=== PATIENT | female | born 1940 | race Caucasian/White ===

== ENCOUNTER → 2016-07-10 | Outpatient (REF) | payer MEDICARE, BC ==
[~2016-07-10] MED LIST: /ALEN70TA; /AMLO25TA PO; /ESCI10TA; /PANT40TA; /PANT40TA PO; /WARF2TA; /WARF3TA; /WARF3TA PO; /WARF4TA; ACET; ACET65TA; ALBU INH; ALDA25TA2; AMBI12.52 PO; AMBI5TAB; AMBIEN PO; AMLO10TA; AMLO5TAB; AMLO5TAB2 PO; ASPI1TAB PO; ASPI81TA85 PO; ATEN100T; ATEN25TA; ATEN25TA PO; ATEN50TA2; ATEN50TA2 PO; ATOR1TAB18 PO; BABY81CH; CAPT12.5; CARA1TAB2 PO; CATA0.1T; CEFT500T PO; CLOP75TA2 PO; COUM1TAB14 PO; COUM1TAB19 PO; COUM2TAB10 PO; CRES20TA PO; Capoten; DETR1TAB4 PO; DRIS50002 PO; ENTO3CAP5 PO; ERYT5OPO TOP; FERR325T3 PO; FLAG500T PO; FURO20TA2 PO; FURO40TA2 PO; HYDR25TA6; HYDR25TA8; LASI20TA PO; LASI40TA; LISI10TA4 PO; LISI5TAB; LISI5TAB PO; MACR100C3 PO; MELA1CAP2 PO; MILKSUS; MIRA0.254 PO; NASA0.057; NEUR300C PO; NICO21DI26 TOP; NICO7PA TD; NIFE15CA PO; NIFE20CA PO; NITR0.4S; NITR4TASL SL; NYST100024 TOP; NYST10CR TOP; OMEPRAZOLE PO; PANT40TA2 PO; PEPC20TA2; PLAV75TA2; POLY150C4 PO; POLY150C5 PO; PRIL40CA PO; PROA1AER INH; PROC30TA PO; PROT1TAB2 PO; PROV90AE; QUININE SULFATE; ROCA0.25 PO; ROCA0.5C PO; SUCR1TA PO; TENO25TA PO; TIOT18INH INH; TOLT1CAP4 PO; TRAM50TA2 PO; TRAZ50TA4 PO; TYLE325T5 PO; VARE05TA; VICT18IN SC; VITA100037 PO; VITA100066 PO; WARF-58 PO; WARF1TAB35 PO; WARF4TAB51 PO; XANA0.25; ZOCO20TA; ZOCO40TA PO; ZOLP-187 PO; ZYLO100T PO; ZYRT10CA PO; captopril
== END ==
LOC: M SFHCPLAZ 16:51
PROVIDERS: ATTEND Nurse Practitioner Family
DX: L03.90 Cellulitis, unspecified (principal)

== ENCOUNTER → 2016-07-10 | Outpatient (CLI) | payer MEDICARE, BC ==
[2016-07-10 19:00] LABS: BASO % 0.7 % (0.0-1.0); EOS # 0.2 K/mm3 (0.0-0.50); EOS % 3.2 % (0.0-3.0); LARGE UNSTAINED CELL # 0.2 K/mm3 (0.0-0.4); LARGE UNSTAINED CELL % 2.1 % (0.0-4.0); LYMPH % 13.5 % (24.0-44.0); MEAN CORPUSCULAR HEMOGLOBIN 29.3 pg (27.0-33.0); MEAN CORPUSCULAR HGB CONC 31.2 g/dl (32.0-36.5); MEAN CORPUSCULAR VOLUME 93.8 fl (80.0-96.0); MONO # 0.3 K/mm3 (0.0-0.8); MONO % 4.2 % (0.0-5.0); NEUTROPHILS # 5.6 K/mm3 (1.8-7.7); NEUTROPHILS % 76.3 % (36.0-66.0); PLATELET COUNT, AUTOMATED 456 k/mm3 (150-450); RED CELL DISTRIBUTION WIDTH 15.4 % (11.5-14.5); WHITE BLOOD COUNT 7.4 K/mm3 (4.0-10.0)
== END ==
LOC: M LAB 18:33
PROVIDERS: ATTEND Nurse Practitioner Family
DX: L03.90 Cellulitis, unspecified (principal); Z79.01 Long term (current) use of anticoagulants
CPT/HCPCS: 36415; 85025; 85610; 87070; 87077; 87186; G0463

== ENCOUNTER → 2016-08-06 | Outpatient (CLI) | payer MEDICARE, BC ==
--- NOTE | 2016-08-06 12:31 | REP ---
Clinical: Pain. Technique: AP, lateral, bilateral oblique views of the left ankle. Findings: Soft tissue swelling is appreciated. Age-related degenerative changes noted. No acute fracture or dislocation. Ankle mortise intact. Impression: Soft tissue swelling and age-related degenerative changes. Signed by Pratik Rowland MD 08/06/2016 12:23 P
== END ==
LOC: M RAD 11:51
PROVIDERS: ATTEND Nurse Practitioner Family
DX: M19.072 Primary osteoarthritis, left ankle and foot (principal); Z79.01 Long term (current) use of anticoagulants
CPT/HCPCS: 73610; 85610; G0463

== ENCOUNTER → 2016-08-27 | Outpatient (REF) | payer MEDICARE, BC | LOC: M SFHCPLAZ 16:09 | PROVIDERS: ATTEND Nurse Practitioner Family | DX: D64.9 Anemia, unspecified (principal); Z53.8 Procedure and treatment not carried out for other reasons ==

== ENCOUNTER → 2016-08-27 | Outpatient (CLI) | payer MEDICARE, BC ==
[2016-08-27 20:34] LABS: BASO # 0.1 K/mm3 (0.0-0.2); BASO % 1.1 % (0.0-1.0); EOS # 0.2 K/mm3 (0.0-0.50); EOS % 2.6 % (0.0-3.0); LARGE UNSTAINED CELL # 0.2 K/mm3 (0.0-0.4); LARGE UNSTAINED CELL % 2.6 % (0.0-4.0); LYMPH # 1.2 K/mm3 (1.5-4.5); LYMPH % 15.6 % (24.0-44.0); MEAN CORPUSCULAR HEMOGLOBIN 28.8 pg (27.0-33.0); MEAN CORPUSCULAR HGB CONC 29.8 g/dl (32.0-36.5); MEAN CORPUSCULAR VOLUME 96.7 fl (80.0-96.0); MONO # 0.6 K/mm3 (0.0-0.8); MONO % 7.9 % (0.0-5.0); NEUTROPHILS # 5.2 K/mm3 (1.8-7.7); NEUTROPHILS % 70.2 % (36.0-66.0); PLATELET COUNT, AUTOMATED 354 k/mm3 (150-450); WHITE BLOOD COUNT 7.4 K/mm3 (4.0-10.0)
== END ==
LOC: M WUC 16:44
PROVIDERS: ATTEND Nurse Practitioner Family
DX: D64.9 Anemia, unspecified (principal); Z51.81 Encounter for therapeutic drug level monitoring; Z79.01 Long term (current) use of anticoagulants

== ENCOUNTER → 2016-10-30 | Outpatient (CLI) | payer MEDICARE, BC ==
--- NOTE | 2016-10-30 15:13 | REP ---
REASON: Tobacco abuse. Only lung window images were sent to the PACS system for review. The interstitial markings are generally increased. There is no evidence of a significant nodule, mass, or opacity. IMPRESSION: Interstitial fibrotic changes are suspected. Pulmonary consultation is recommended. There is no evidence of a significant nodule. Signed by Jewel Fernández DO 10/30/2016 03:37 P
== END ==
LOC: M RAD 10:52
PROVIDERS: ATTEND Family Medicine
DX: Z12.2 Encounter for screening for malignant neoplasm of respiratory organs (principal); R91.8 Other nonspecific abnormal finding of lung field; Z87.891 Personal history of nicotine dependence

== ENCOUNTER → 2016-11-03 | Outpatient (REF) | payer MEDICARE, BC ==
[2016-11-03 11:32] LABS: MEAN CORPUSCULAR HEMOGLOBIN 28.2 pg (27.0-33.0); MEAN CORPUSCULAR HGB CONC 29.7 g/dl (32.0-36.5); WHITE BLOOD COUNT 6.3 K/mm3 (4.0-10.0)
[2016-11-03 11:37] LABS: INR 3.99
== END ==
LOC: M SFHCPLAZ 10:15
PROVIDERS: ATTEND Family Medicine
DX: D50.9 Iron deficiency anemia, unspecified (principal); Z51.81 Encounter for therapeutic drug level monitoring; Z79.01 Long term (current) use of anticoagulants; Z87.19 Personal history of other diseases of the digestive system
CPT/HCPCS: 85027; 85610; G0463

== ENCOUNTER → 2016-11-05 | Outpatient (CLI) | payer MEDICARE, BC ==
--- NOTE | 2016-11-05 15:57 | REP ---
Digital screening mammography with CAD: No comparison mammography available. The patient relates a history of a previous lumpectomy on the left. No current breast symptoms. Findings: There is mild vascular calcification. Breast parenchyma shows scattered fibrous glandular elements and scattered non-grouped calcifications bilaterally. There is an asymmetric density at approximate 12 o'clock in the right breast which is partly fat density. This may be benign fat necrosis. It is asymmetric. Further evaluation is recommended. No other suspicious mammographic finding. Impression: BIRADS category 0 incomplete breast imaging. Asymmetric density at 12 o'clock in the anterior third of the left breast may be postoperative change. Diagnostic left breast mammography and focused left breast sonography recommended. This mammogram was interpreted with the aid of an FDA-approved computer-aided detection system. The patient states she/he had a clinical breast exam in October 2016. The patient letter being requested is M0.
--- NOTE | 2016-11-07 09:08 | DEXA ---
AP SPINE L1 - L4 1.092 -0.8 0.2 LT FEMUR TOTAL 0.834 -1.4 -0.1 RT FEMUR TOTAL 0.769 -1.9 -0.6 TOTAL BODY TOTAL OTHER DUAL FEMUR FRAX* ASSESSMENT Risk factors: None. 10 year probability of fracture Major osteoporotic fracture 15.8 % Hip fracture 4.8 % COMMENTS: Normal bone densitometry of the spine. There is low bone density of the hips. The density of the spine has increased 12.0% since the initial exam on 2001. The spine density has increased 5.6% since the most recent exam on 06/03/2007. The density of the left hip has decreased 3.0% since the initial exam on 2001. The density of the left hip has decreased 6.0% since the the most recent exam on 06/03/2007. The density of the right hip has decreased 7.0% since the initial exam on 2001. The density of the right hip has decreased 11.5% since the most recent exam on 06/03/2007. FOLLOW-UP: Recommendation for the next bone density exam: 2 years. GARCIA
== END ==
LOC: M WHC 12:49
PROVIDERS: ATTEND Family Medicine
DX: Z12.31 Encounter for screening mammogram for malignant neoplasm of breast (principal); R92.8 Other abnormal and inconclusive findings on diagnostic imaging of breast; M85.9 Disorder of bone density and structure, unspecified; Z13.820 Encounter for screening for osteoporosis
CPT/HCPCS: 77080; G0202

== ENCOUNTER → 2016-12-05 | Outpatient (CLI) | payer MEDICARE, BC ==
--- NOTE | 2016-12-05 15:05 | REP ---
BILATERAL DIAGNOSTIC MAMMOGRAM AND BILATERAL BREAST ULTRASOUND: Bilateral diagnostic mammography is performed with multiple bilateral spot compression views obtained. No nodules are seen in the left breast. However, in the right breast at 12-o'clock position, there does appear to be a persistent somewhat irregular nodule approximately 1 cm in diameter. There appears to be central fat density within the nodule. Margins are again somewhat ill defined. Real-time sonographic evaluation of the 12-o'clock region of the right breast demonstrates a shadowing hypoechoic nodule measuring 1.0 x 0.9 x 1.1 cm. Biopsy is recommended. Real-time sonographic evaluation of left breast performed in the retroareolar region demonstrates some dilated ducts with no discrete nodule. IMPRESSION: ACR 4 suspicious mammogram right breast. There does appear to be a somewhat irregular 1 cm nodule at 12-o'clock position of the right breast, and this does appear to contain central fat density. By ultrasound, it is shadowing and demonstrates internal blood flow with Doppler evaluation. Recommend ultrasound-guided biopsy with postprocedure mammogram. ACR 4 suspicious. B-RADS/ACR category 4 mammogram. Suspicious abnormality - biopsy should be considered. Usually requires biopsy. The patient letter being requested is M4. Signed by Jhonny Dorman MD 12/05/2016 05:24 P
== END ==
LOC: M RAD 11:27
PROVIDERS: ATTEND Family Medicine
DX: R92.8 Other abnormal and inconclusive findings on diagnostic imaging of breast (principal)
CPT/HCPCS: 76642; G0206

== ENCOUNTER → 2016-12-08 | Outpatient (REF) | payer MEDICARE, BC | LOC: M SFHCPLAZ 14:55 | PROVIDERS: ATTEND Nurse Practitioner Family | DX: R06.02 Shortness of breath (principal); I50.40 Unspecified combined systolic (congestive) and diastolic (congestive) heart failure; Z53.8 Procedure and treatment not carried out for other reasons ==

== ENCOUNTER → 2016-12-10 | Outpatient (CLI) | payer MEDICARE, BC | LOC: M RAD 14:31 → M LAB 14:31 | PROVIDERS: ATTEND Nurse Practitioner Family | DX: R06.02 Shortness of breath (principal); D50.0 Iron deficiency anemia secondary to blood loss (chronic) ==

== ENCOUNTER → 2016-12-10 | Outpatient (REF) | payer MEDICARE, BC ==
[2016-12-10 17:03] LABS: MEAN CORPUSCULAR HEMOGLOBIN 27.5 pg (27.0-33.0); MEAN CORPUSCULAR HGB CONC 29.6 g/dl (32.0-36.5); MEAN CORPUSCULAR VOLUME 92.7 fl (80.0-96.0); RED CELL DISTRIBUTION WIDTH 16.7 % (11.5-14.5); WHITE BLOOD COUNT 6.1 K/mm3 (4.0-10.0)
== END ==
LOC: M SFHCPLAZ 13:44
PROVIDERS: ATTEND Family Medicine
DX: D50.0 Iron deficiency anemia secondary to blood loss (chronic) (principal)

== ENCOUNTER → 2016-12-15 | Outpatient (REF) | payer MEDICARE, BC ==
[~2016-12-15] MED LIST changes: +AFRI0.052; +ALDA25TA2 PO; -ATOR1TAB18 PO; +ATOR80TA59 PO; +CARA1TAB6 PO; +CINA30TA PO; +CITA20TA4 PO; -COUM2TAB10 PO; +COUM2TAB22 PO; +DEMA20TA6 PO; +FERR32TA PO; +FURO80TA2 PO; +GABA-282 PO; +MYCO15CR TOP; -NYST100024 TOP; +NYST1POW9 TOP; -PROA1AER INH; +PROAAER10 INH; +TRAZ50TA11 PO; -TRAZ50TA4 PO; -VITA100037 PO; +VITA100067 PO; +ZOLP5TAB PO; +oxygen
== END ==
LOC: M SFHCPLAZ 17:10
PROVIDERS: ATTEND Nurse Practitioner Family
DX: N30.00 Acute cystitis without hematuria (principal)
CPT/HCPCS: 81002; 87088; 87186; G0463

== ENCOUNTER → 2017-01-13 | Outpatient (CLI) | payer MEDICARE, BC ==
[~2017-01-13] MED LIST changes: +LIDOCAINE 1% MDV 20ML VIAL As Ordered ONE
--- NOTE | 2017-01-13 13:00 | REP ---
POST BIOPSY MAMMOGRAM RIGHT BREAST: Post biopsy mammogram right breast performed. Patient had ultrasound guided biopsy of a suspicious nodule at 12 o'clock in the right breast. There is a metallic clip now seen on today's mammogram at the site of the nodule comparing to the prior mammogram of 12/05/2016. Signed by Jhonny Dorman MD 01/13/2017 03:30 P
--- NOTE | 2017-01-13 17:31 | REP ---
ULTRASOUND GUIDED RIGHT BREAST BIOPSY: The procedure was performed under the direct supervision of Dr. Dorman. The patient has a history of an irregular 1 cm nodule at the 12 o'clock position of the right breast seen on a previous ultrasound dated 12/05/2016. The risks and benefits of the procedure were explained to the patient and informed consent was obtained. The right breast nodule was localized using ultrasound guidance. The skin was prepped and draped in a sterile fashion 1% Xylocaine was used as a local anesthetic. Using ultrasound guidance a 13-gauge suction assisted mammotome needle was inserted and 5 core biopsy samples were obtained. A marker clip was placed at the biopsy site. Post-biopsy ultrasound demonstrates a small hematoma. Manual pressure was placed over the site for approximately 5-10 minutes. Ultrasound images obtained approximately half an hour later show enlargement of the hematoma. Again manual pressure was held at the site. Images obtained approximately 1 hour later show the hematoma to have gotten slightly smaller. After the appropriate amount of monitored convalescence the patient was discharged from the department. The patient tolerated the procedure well and there were no immediate complications. Reviewed by FLEX Lauren 01/14/2017 01:35 PEdited and Signed by Jhonny Dorman MD 01/15/2017 05:38 P
== END | disposition home or self-care (01) ==
LOC: M RADPRO 10:52
PROVIDERS: ATTEND Surgery
DX: N63 Unspecified lump in breast (principal); L76.32 Postprocedural hematoma of skin and subcutaneous tissue following other procedure; I12.9 Hypertensive chronic kidney disease with stage 1 through stage 4 chronic kidney disease, or unspecified chronic kidney disease; N18.3 Chronic kidney disease, stage 3 (moderate); E78.00 Pure hypercholesterolemia, unspecified; J98.4 Other disorders of lung; K21.9 Gastro-esophageal reflux disease without esophagitis; Z95.5 Presence of coronary angioplasty implant and graft; M10.9 Gout, unspecified; Z79.899 Other long term (current) drug therapy; Z87.891 Personal history of nicotine dependence
CPT/HCPCS: 19083; 88305; G0206

== ENCOUNTER → 2017-01-19 | Outpatient (CLI) | payer MEDICARE, BC ==
[~2017-01-19] MED LIST changes: -LIDOCAINE 1% MDV 20ML VIAL As Ordered ONE
[2017-01-19 10:56] LABS: MEAN CORPUSCULAR HEMOGLOBIN 27.7 pg (27.0-33.0); MEAN CORPUSCULAR HGB CONC 30.4 g/dl (32.0-36.5); MEAN CORPUSCULAR VOLUME 91.2 fl (80.0-96.0); WHITE BLOOD COUNT 7.9 K/mm3 (4.0-10.0)
== END ==
LOC: M LAB 10:16
PROVIDERS: ATTEND Family Medicine
DX: D50.0 Iron deficiency anemia secondary to blood loss (chronic) (principal)

== ENCOUNTER → 2017-01-19 | Outpatient (CLI) | payer MEDICARE, BC ==
--- NOTE | 2017-01-19 19:25 | ECGEPIP ---
Stationary ECG Study [facility] Test Date: 2017-01-19 Pat Name: LAURA CASSIDY Department: Room: - Gender: F Junior Estimator: : 1940 Requested By: QUIN Rios Order Number: [id number] Reading MD: Sebastien Morel Measurements Intervals [place] Rate: 65 P: 77 CO: 261 QRS: 99 QRSD: 130 T: 270 QT: 474 QTc: 493 Interpretive Statements Incorrect limb lead placement. Underlying sinus rhythm? Marked first-degree AV block. Prominent precordial voltage with incomplete LBBB and strain in keeping with LVH. Other than incorrect lead placement, no apparent change from 12/26/15. Electronically Signed On 01-19-2017 19:24:58 EDT by Sebastien Morel
== END ==
LOC: M LAB 10:12
PROVIDERS: ATTEND Ophthalmology
DX: I10 Essential (primary) hypertension (principal); D50.0 Iron deficiency anemia secondary to blood loss (chronic)

== ENCOUNTER 2017-02-02 11:40 | Emergency (ER) | payer MEDICARE, BC ==
[~2017-02-02] VITALS: Ht 165.1 cm; Wt 87.3 kg
[~2017-02-02 11:40] MED LIST changes: -AFRI0.052; -ALDA25TA2 PO; -CINA30TA PO; -CITA20TA4 PO; -DEMA20TA6 PO; -FERR32TA PO; -GABA-282 PO; -MYCO15CR TOP; -oxygen
[2017-02-02] MEDS ORDERED: AFRI0.052 (12:06)
[2017-02-02] MEDS ORDERED: MYCO15CR TOP (12:06)
[2017-02-02] MEDS ORDERED: CINA30TA PO (12:06)
[2017-02-02] MEDS ORDERED: CITA20TA4 PO (12:06)
[2017-02-02 12:14] LABS: BASO % 0.6 % (0.0-1.0); EOS # 0.2 K/mm3 (0.0-0.50); EOS % 1.7 % (0.0-3.0); LARGE UNSTAINED CELL # 0.1 K/mm3 (0.0-0.4); LARGE UNSTAINED CELL % 1.5 % (0.0-4.0); LYMPH # 1.4 K/mm3 (1.5-4.5); LYMPH % 13.9 % (24.0-44.0); MEAN CORPUSCULAR HEMOGLOBIN 28.2 pg (27.0-33.0); MEAN CORPUSCULAR HGB CONC 30.5 g/dl (32.0-36.5); MEAN CORPUSCULAR VOLUME 92.2 fl (80.0-96.0); MONO # 0.5 K/mm3 (0.0-0.8); MONO % 5.2 % (0.0-5.0); NEUTROPHILS % 77.1 % (36.0-66.0); PLATELET COUNT, AUTOMATED 306 k/mm3 (150-450); RED CELL DISTRIBUTION WIDTH 18.5 % (11.5-14.5); WHITE BLOOD COUNT 9.1 K/mm3 (4.0-10.0)
[2017-02-02 12:22] LABS: INR 3.12
[2017-02-02 13:32] VITALS: BP 145/63
[2017-04-20] MEDS ORDERED: FURO40TA2 PO (15:11)
[2017-04-20] MEDS ORDERED: CINA30TA PO (15:19)
[2017-04-20] MEDS ORDERED: oxygen (15:20)
[2017-04-20] MEDS ORDERED: NYST1POW9 TOP (18:14)
[2017-04-28] MEDS ORDERED: DEMA20TA6 PO (11:21)
[2017-04-28] MEDS ORDERED: FERR32TA PO (11:21)
[2017-04-28] MEDS ORDERED: GABA-282 PO (11:21)
[2017-04-28] MEDS ORDERED: ALDA25TA2 PO (11:21)
== END 2017-02-02 13:34 | disposition home or self-care (01) ==
LOC: EDBD 11:40 → M ED 11:40
DX: R04.0 Epistaxis (principal); I10 Essential (primary) hypertension; Z87.891 Personal history of nicotine dependence; Z88.1 Allergy status to other antibiotic agents; Z88.2 Allergy status to sulfonamides; Z88.5 Allergy status to narcotic agent; Z79.01 Long term (current) use of anticoagulants; Z79.899 Other long term (current) drug therapy

== ENCOUNTER 2017-02-05 08:18 | Day surgery (SDC) | payer MEDICARE, BC ==
[~2017-02-05] VITALS: Ht 165.1 cm; Wt 86.2 kg
[~2017-02-05 08:18] MED LIST changes: +ACETYLCHOLINE OPHTH SOLN 1% 2ML (MIOCHOL-E) As Ordered ONE; +AFRI0.052; +BALANCED SALT IRRIGATION SOLUTION 500ML BAG (FOR OR EYE MACHINE) As Ordered ONE; +CEFUROXIME 1MG/0.1ML INTRACAMERAL INJ As Ordered ONE; +CINA30TA PO; +CITA20TA4 PO; +DUOVISC (0.50ML VISCOAT/0.55ML PROVISC) OPHTH KIT As Ordered ONE; +LIDOCAINE 0.75%/EPINEPHRINE 0.025% IN BSS 1ML SYR INTRACAMERAL (OR ONLY) As Ordered ONE; +MYCO15CR TOP; +OFLOXACIN 0.3 % (OCUFLOX) OPTH SOL 5ML XX ONE; +PHENYLEPHRINE 2.5% OPHTH SOL 2ML XX ONE; +POVIDONE-IODINE 5% OPHTH PREP SOL 30ML As Ordered ONE; +PROPARACAINE 0.5% OPHTH SOL 15ML XX ONE; +TROPICAMIDE 1% OPHTH SOLN 2ML XX ONE
[2017-02-05] MEDS ORDERED: fentaNYL 100 MCG/2 ML INJECTION (J3010) As Ordered ONE (08:26)
[2017-02-05] MEDS ORDERED: MIDAZOLAM INJ 2 MG/2 ML VIAL (J2250) As Ordered ONE (08:26)
[2017-02-05] MEDS ORDERED: LR 1,000 ML IV ONE (08:30)
[2017-02-05] MEDS ORDERED: WARF-58 PO (09:23)
[2017-02-05] MEDS ORDERED: WARF4TAB51 PO (09:23)
[2017-02-05 09:26] LABS: INR 2.8
[2017-02-05 12:55] VITALS: BP 137/63
[2017-04-20] MEDS ORDERED: FURO40TA2 PO (15:11)
[2017-04-20] MEDS ORDERED: CINA30TA PO (15:19)
[2017-04-20] MEDS ORDERED: oxygen (15:20)
[2017-04-20] MEDS ORDERED: NYST1POW9 TOP (18:14)
[2017-04-28] MEDS ORDERED: FERR32TA PO (11:21)
[2017-04-28] MEDS ORDERED: DEMA20TA6 PO (11:21)
[2017-04-28] MEDS ORDERED: GABA-282 PO (11:21)
[2017-04-28] MEDS ORDERED: ALDA25TA2 PO (11:21)
== END 2017-02-05 12:59 | disposition home or self-care (01) ==
LOC: M SDC 08:18
PROVIDERS: ATTEND Ophthalmology
DX: H25.12 Age-related nuclear cataract, left eye (principal); I10 Essential (primary) hypertension; I25.10 Atherosclerotic heart disease of native coronary artery without angina pectoris; I34.8 Other nonrheumatic mitral valve disorders; I50.9 Heart failure, unspecified; Z88.2 Allergy status to sulfonamides; E78.5 Hyperlipidemia, unspecified; D64.9 Anemia, unspecified; I73.9 Peripheral vascular disease, unspecified; Z86.73 Personal history of transient ischemic attack (TIA), and cerebral infarction without residual deficits; Z79.899 Other long term (current) drug therapy; N18.4 Chronic kidney disease, stage 4 (severe); Z95.1 Presence of aortocoronary bypass graft; Z88.5 Allergy status to narcotic agent
CPT/HCPCS: 36415; 66984; 85610; J2250; J3010; V2632

== ENCOUNTER → 2017-02-16 | Outpatient (CLI) | payer MEDICARE, BC ==
[~2017-02-16] MED LIST changes: -ACETYLCHOLINE OPHTH SOLN 1% 2ML (MIOCHOL-E) As Ordered ONE; +ALDA25TA2 PO; -BALANCED SALT IRRIGATION SOLUTION 500ML BAG (FOR OR EYE MACHINE) As Ordered ONE; -CEFUROXIME 1MG/0.1ML INTRACAMERAL INJ As Ordered ONE; +DEMA20TA6 PO; -DUOVISC (0.50ML VISCOAT/0.55ML PROVISC) OPHTH KIT As Ordered ONE; +FERR32TA PO; +GABA-282 PO; -LIDOCAINE 0.75%/EPINEPHRINE 0.025% IN BSS 1ML SYR INTRACAMERAL (OR ONLY) As Ordered ONE; -OFLOXACIN 0.3 % (OCUFLOX) OPTH SOL 5ML XX ONE; -PHENYLEPHRINE 2.5% OPHTH SOL 2ML XX ONE; -POVIDONE-IODINE 5% OPHTH PREP SOL 30ML As Ordered ONE; -PROPARACAINE 0.5% OPHTH SOL 15ML XX ONE; -TROPICAMIDE 1% OPHTH SOLN 2ML XX ONE; +oxygen
[2017-02-16 15:49] LABS: BASO # 0.1 K/mm3 (0.0-0.2); EOS # 0.2 K/mm3 (0.0-0.50); EOS % 2.3 % (0.0-3.0); LARGE UNSTAINED CELL # 0.2 K/mm3 (0.0-0.4); LARGE UNSTAINED CELL % 2.3 % (0.0-4.0); LYMPH % 14.7 % (24.0-44.0); MEAN CORPUSCULAR HEMOGLOBIN 27.3 pg (27.0-33.0); MEAN CORPUSCULAR HGB CONC 29.9 g/dl (32.0-36.5); MEAN CORPUSCULAR VOLUME 91.1 fl (80.0-96.0); MONO # 0.4 K/mm3 (0.0-0.8); MONO % 6.2 % (0.0-5.0); NEUTROPHILS # 5.2 K/mm3 (1.8-7.7); NEUTROPHILS % 73.5 % (36.0-66.0); PLATELET COUNT, AUTOMATED 332 k/mm3 (150-450); RED CELL DISTRIBUTION WIDTH 17.3 % (11.5-14.5)
[2017-02-16 16:01] LABS: ADD MORPHOLOGY? YES
[2017-02-16 16:14] LABS: PERCENT SATURATION 13.2 % (13.2-45.0)
[2017-02-16 16:18] LABS: ANISOCYTOSIS 1+; HYPOCHROMASIA 2+; POLYCHROMASIA 1+
[2017-02-16 16:19] LABS: OVALOCYTES 1+
== END ==
LOC: M LAB 15:17
PROVIDERS: ATTEND Family Medicine
DX: D50.0 Iron deficiency anemia secondary to blood loss (chronic) (principal)

== ENCOUNTER 2017-02-18 10:42 | Outpatient (CLI) | payer MEDICARE, BC ==
[~2017-02-18 10:42] MED LIST changes: -ALDA25TA2 PO; -DEMA20TA6 PO; -FERR32TA PO; -GABA-282 PO; -oxygen
[2017-02-18] MEDS ORDERED: diphenhydrAMINE 25 MG CAP PO ONE (12:30)
[2017-02-18] MEDS ORDERED: ACETAMINOPHEN TAB 650MG DOSE (2X325MG) PO ONE (12:30)
[2017-04-20] MEDS ORDERED: FURO40TA2 PO (15:11)
[2017-04-20] MEDS ORDERED: CINA30TA PO (15:19)
[2017-04-20] MEDS ORDERED: oxygen (15:20)
[2017-04-20] MEDS ORDERED: NYST1POW9 TOP (18:14)
[2017-04-28] MEDS ORDERED: FERR32TA PO (11:21)
[2017-04-28] MEDS ORDERED: DEMA20TA6 PO (11:21)
[2017-04-28] MEDS ORDERED: GABA-282 PO (11:21)
[2017-04-28] MEDS ORDERED: ALDA25TA2 PO (11:21)
== END 2017-02-18 22:23 | disposition home or self-care (01) ==
LOC: M OPCLI4PV 10:42 → M MSPAV 10:45 → M OPCLI4PV 22:23
PROVIDERS: ATTEND Nurse Practitioner Family
DX: D50.0 Iron deficiency anemia secondary to blood loss (chronic) (principal); Z88.8 Allergy status to other drugs, medicaments and biological substances; Z88.2 Allergy status to sulfonamides; Z88.5 Allergy status to narcotic agent
CPT/HCPCS: 36415; 36430; 86850; 86900; 86901; 86920; P9016

== ENCOUNTER 2017-02-19 11:54 | Day surgery (SDC) | payer MEDICARE, BC ==
--- NOTE | 2017-02-08 08:35 | RO ---
DATE OF PROCEDURE: 02/05/2017 PREOPERATIVE DIAGNOSIS: Visually significant nuclear sclerotic cataract left eye. POSTOPERATIVE DIAGNOSIS: Visually significant nuclear sclerotic cataract left eye. PROCEDURE: Cataract extraction with use of phacoemulsification, and placement of intraocular lens, AU00T0 20.5D , left eye. SURGEON: Froilan Silvestre DO MILL ROLL REWINDER: ANESTHESIA: Local with monitored anesthesia care (MAC). COMPLICATIONS: None. POSTOPERATIVE CONDITION: Stable. INDICATION FOR SURGERY: Blurred vision left eye affecting patient's activities of daily living. DESCRIPTION OF PROCEDURE: The patient was seen in the preoperative area and properly identified. The correct operative eye was identified and marked. Attention was turned to that eye. The patient received topical antibiotics in the preoperative area. The patient then received topical dilating drops consisting of Tropicamide and Phenylephrine. The patient was then transferred to the operating room. The correct side was re-identified. The patient received topical anesthetics and antibiotics on the surface of the eye. The eye was prepped and draped in a sterile fashion. The upper and lower eyelids were isolated with Tegaderm tape, and the lids were held open with an adjustable speculum. Using a sideport blade, a paracentesis incision was made. Intraocular preservative-free lidocaine was then injected into the anterior chamber. Viscoelastic was then injected into the anterior chamber through the paracentesis. Using a 2.6 mm sharp-tipped keratome, the anterior chamber was entered via a temporal clear corneal incision. A continuous curvilinear capsulorrhexis was created with the aid of a 26g cystotome and utrata forceps. Hydrodissection was performed with balanced salt solution (BSS) on a blunt cannula until the nucleus was freely mobile. The crystalline lens was phacoemulsified and aspirated. Additional cohesive viscoelastic was placed into the capsular bag to deepen it. A 20.5 lens D was placed into the capsular bag and confirmed by visualizing the continuous curvilinear capsulorrhexis. Additional irrigation and aspiration was used to remove cortical material and remaining viscoelastic. The clear corneal incision was hydrated with BSS on a blunt cannula. The lens was well positioned. The incisions were then tested for leaks and found to be negative. The eye was then palpated for appropriate pressure and adjusted accordingly with BSS. The eyelid speculum was carefully removed. A shield was placed over the eye. The patient tolerated the procedure well and was discharged to the recovery unit in a stable condition. edited: 02/09/2017 1437 tkf [email or web address]
[~2017-02-19] VITALS: Ht 165.1 cm; Wt 86.2 kg
[~2017-02-19 11:54] MED LIST changes: +ACETYLCHOLINE OPHTH SOLN 1% 2ML (MIOCHOL-E) As Ordered ONE; +CEFUROXIME 1MG/0.1ML INTRACAMERAL INJ As Ordered ONE; +DUOVISC (0.50ML VISCOAT/0.55ML PROVISC) OPHTH KIT As Ordered ONE; +LIDOCAINE 0.75%/EPINEPHRINE 0.025% IN BSS 1ML SYR INTRACAMERAL (OR ONLY) As Ordered ONE; +OFLOXACIN 0.3 % (OCUFLOX) OPTH SOL 5ML OD ONE; +PHENYLEPHRINE 2.5% OPHTH SOL 2ML OD ONE; +POVIDONE-IODINE 5% OPHTH PREP SOL 30ML As Ordered ONE; +PROPARACAINE 0.5% OPHTH SOL 15ML OD ONE; +TROPICAMIDE 1% OPHTH SOLN 2ML OD ONE
[2017-02-19] MEDS ORDERED: LR 1,000 ML IV SCH (12:00)
[2017-02-19] MEDS ORDERED: NS 1,000 ML IV SCH (12:15)
[2017-02-19] MEDS ORDERED: LR 500 ML ONE (12:56)
[2017-02-19] MEDS ORDERED: MIDAZOLAM INJ 2 MG/2 ML VIAL (J2250) As Ordered ONE (13:14)
[2017-02-19] MEDS ORDERED: fentaNYL 100 MCG/2 ML INJECTION (J3010) As Ordered ONE (13:15)
[2017-02-19] MEDS ORDERED: BALANCED SALT IRRIGATION SOLUTION 500ML BAG (FOR OR EYE MACHINE) IR ONE (13:46)
[2017-02-19 14:50] VITALS: BP 133/65
--- NOTE | 2017-02-20 15:33 | RO ---
DATE OF PROCEDURE: 02/19/2017 PREOPERATIVE DIAGNOSIS: Visually significant nuclear sclerotic cataract right eye. POSTOPERATIVE DIAGNOSIS: Visually significant nuclear sclerotic cataract right eye. PROCEDURE: Cataract extraction with use of phacoemulsification, and placement of intraocular lens, AU00T0, 23.5 D, right eye. SURGEON: Froilan Silvestre DO ACCOUNT RESOLUTION EXPERT: ANESTHESIA: Local with monitored anesthesia care (MAC). COMPLICATIONS: None. POSTOPERATIVE CONDITION: Stable. INDICATION FOR SURGERY: Blurred vision right eye affecting patient's activities of daily living. DESCRIPTION OF PROCEDURE: The patient was seen in the preoperative area and properly identified. The correct operative eye was identified and marked. Attention was turned to that eye. The patient received topical antibiotics in the preoperative area. The patient then received topical dilating drops consisting of Tropicamide and Phenylephrine. The patient was then transferred to the operating room. The correct side was re-identified. The patient received topical anesthetics and antibiotics on the surface of the eye. The eye was prepped and draped in a sterile fashion. The upper and lower eyelids were isolated with Tegaderm tape, and the lids were held open with an adjustable speculum. Using a sideport blade, a paracentesis incision was made. Intraocular preservative-free lidocaine was then injected into the anterior chamber. Viscoelastic was then injected into the anterior chamber through the paracentesis. Using a 2.6 mm sharp-tipped keratome, the anterior chamber was entered via a temporal clear corneal incision. A continuous curvilinear capsulorrhexis was created with the aid of a 26g cystotome and utrata forceps. Hydrodissection was performed with balanced salt solution (BSS) on a blunt cannula until the nucleus was freely mobile. The crystalline lens was phacoemulsified and aspirated. Additional cohesive viscoelastic was placed into the capsular bag to deepen it. An AU00T0, 23.5 D was placed into the capsular bag and confirmed by visualizing the continuous curvilinear capsulorrhexis. Additional irrigation and aspiration was used to remove cortical material and remaining viscoelastic. The clear corneal incision was hydrated with BSS on a blunt cannula. The lens was well positioned. The incisions were then tested for leaks and found to be negative. The eye was then palpated for appropriate pressure and adjusted accordingly with BSS. The eyelid speculum was carefully removed. A shield was placed over the eye. The patient tolerated the procedure well and was discharged to the recovery unit in a stable condition. GARCIA
[2017-04-20] MEDS ORDERED: FURO40TA2 PO (15:11)
[2017-04-20] MEDS ORDERED: CINA30TA PO (15:19)
[2017-04-20] MEDS ORDERED: oxygen (15:20)
[2017-04-20] MEDS ORDERED: NYST1POW9 TOP (18:14)
[2017-04-28] MEDS ORDERED: FERR32TA PO (11:21)
[2017-04-28] MEDS ORDERED: GABA-282 PO (11:21)
[2017-04-28] MEDS ORDERED: ALDA25TA2 PO (11:21)
[2017-04-28] MEDS ORDERED: DEMA20TA6 PO (11:21)
== END 2017-02-19 15:10 | disposition home or self-care (01) ==
LOC: M SDC 11:54
PROVIDERS: ATTEND Ophthalmology
DX: H25.11 Age-related nuclear cataract, right eye (principal); I13.0 Hypertensive heart and chronic kidney disease with heart failure and stage 1 through stage 4 chronic kidney disease, or unspecified chronic kidney disease; I25.10 Atherosclerotic heart disease of native coronary artery without angina pectoris; I50.32 Chronic diastolic (congestive) heart failure; E78.5 Hyperlipidemia, unspecified; I48.91 Unspecified atrial fibrillation; I65.23 Occlusion and stenosis of bilateral carotid arteries; G47.33 Obstructive sleep apnea (adult) (pediatric); N18.3 Chronic kidney disease, stage 3 (moderate); I25.2 Old myocardial infarction; I73.9 Peripheral vascular disease, unspecified; I34.8 Other nonrheumatic mitral valve disorders; Z86.73 Personal history of transient ischemic attack (TIA), and cerebral infarction without residual deficits; J44.9 Chronic obstructive pulmonary disease, unspecified; Z99.81 Dependence on supplemental oxygen; D50.9 Iron deficiency anemia, unspecified; Z95.1 Presence of aortocoronary bypass graft; Z95.5 Presence of coronary angioplasty implant and graft; Z88.1 Allergy status to other antibiotic agents; Z88.2 Allergy status to sulfonamides; Z88.5 Allergy status to narcotic agent; Z79.899 Other long term (current) drug therapy; Z79.01 Long term (current) use of anticoagulants
CPT/HCPCS: 66984; J2250; J3010; V2632

== ENCOUNTER → 2017-04-07 | Outpatient (CLI) | payer MEDICARE, BC ==
[~2017-04-07] MED LIST changes: -ACETYLCHOLINE OPHTH SOLN 1% 2ML (MIOCHOL-E) As Ordered ONE; +ALDA25TA2 PO; -CEFUROXIME 1MG/0.1ML INTRACAMERAL INJ As Ordered ONE; +DEMA20TA6 PO; -DUOVISC (0.50ML VISCOAT/0.55ML PROVISC) OPHTH KIT As Ordered ONE; +FERR32TA PO; +GABA-282 PO; -LIDOCAINE 0.75%/EPINEPHRINE 0.025% IN BSS 1ML SYR INTRACAMERAL (OR ONLY) As Ordered ONE; -OFLOXACIN 0.3 % (OCUFLOX) OPTH SOL 5ML OD ONE; -PHENYLEPHRINE 2.5% OPHTH SOL 2ML OD ONE; -POVIDONE-IODINE 5% OPHTH PREP SOL 30ML As Ordered ONE; -PROPARACAINE 0.5% OPHTH SOL 15ML OD ONE; -TROPICAMIDE 1% OPHTH SOLN 2ML OD ONE; +oxygen
[2017-04-07 14:32] LABS: BASO # 0.1 10^3/uL (0.0-0.2); EOS # 0.3 10^3/uL (0.0-0.50); EOS % 3.5 % (0.0-3.0); IMMATURE GRANULOCYTE % 0.5 % (0-0); LYMPH # 1.4 10^3/uL (1.5-4.5); LYMPH % 15.1 % (24.0-44.0); MEAN CORPUSCULAR HEMOGLOBIN 28.2 pg (27.0-33.0); MEAN CORPUSCULAR HGB CONC 29.7 g/dl (32.0-36.5); MEAN CORPUSCULAR VOLUME 95.1 fl (80.0-96.0); MONO % 10.7 % (0.0-5.0); NEUTROPHILS # 6.4 10^3/uL (1.8-7.7); NEUTROPHILS % 69.2 % (36.0-66.0); PLATELET COUNT, AUTOMATED 351 10^3/uL (150-450); RED CELL DISTRIBUTION WIDTH 17.3 % (11.5-14.5); WHITE BLOOD COUNT 9.2 10^3/uL (4.0-10.0)
[2017-04-07 14:47] LABS: INR 2.05
== END ==
LOC: M WUC 10:25
PROVIDERS: ATTEND Family Medicine
DX: D50.0 Iron deficiency anemia secondary to blood loss (chronic) (principal)

== ENCOUNTER → 2017-05-07 | Outpatient (REF) | payer MEDICARE, BC ==
[2017-05-07 16:38] LABS: BASO # 0.1 10^3/uL (0.0-0.2); BASO % 0.6 % (0.0-1.0); EOS # 0.3 10^3/uL (0.0-0.50); EOS % 3.7 % (0.0-3.0); IMMATURE GRANULOCYTE % 0.5 % (0-0); LYMPH # 1.3 10^3/uL (1.5-4.5); LYMPH % 14.1 % (24.0-44.0); MEAN CORPUSCULAR HEMOGLOBIN 27.9 pg (27.0-33.0); MEAN CORPUSCULAR VOLUME 96.3 fl (80.0-96.0); MONO % 10.5 % (0.0-5.0); NEUTROPHILS # 6.6 10^3/uL (1.8-7.7); NEUTROPHILS % 70.6 % (36.0-66.0); PLATELET COUNT, AUTOMATED 361 10^3/uL (150-450); RED CELL DISTRIBUTION WIDTH 17.6 % (11.5-14.5); WHITE BLOOD COUNT 9.3 10^3/uL (4.0-10.0)
[2017-05-07 18:20] LABS: ALBUMIN 3.5 GM/DL (3.2-5.2); ALBUMIN/GLOBULIN RATIO 0.74 (1.00-1.93); BILIRUBIN,TOTAL 0.5 MG/DL (0.2-1.0); CALCIUM LEVEL 9.8 MG/DL (8.8-10.2); CREATININE FOR GFR 2.22 MG/DL (0.55-1.02); GLOMERULAR FILTRATION RATE 22.8 (>39); PERCENT SATURATION 13.6 % (13.2-45.0); POTASSIUM SERUM 4.6 MEQ/L (3.5-5.1); TOTAL PROTEIN 8.2 GM/DL (6.4-8.2)
== END ==
LOC: M SFHCPLAZ 12:03
PROVIDERS: ATTEND Nurse Practitioner Family
DX: Z51.81 Encounter for therapeutic drug level monitoring (principal); Z79.899 Other long term (current) drug therapy; D50.0 Iron deficiency anemia secondary to blood loss (chronic); N18.3 Chronic kidney disease, stage 3 (moderate)
CPT/HCPCS: 36415; 80053; 83550; 85025; 85610; G0463

== ENCOUNTER → 2017-05-25 | Outpatient (REF) | payer MEDICARE, BC ==
[~2017-05-25] MED LIST changes: +ACET-683 PO; +FERR325T16 PO; +SPIR25TA2 PO; +TORS20TA2 PO
[2017-05-25 19:16] LABS: MEAN CORPUSCULAR HEMOGLOBIN 28.4 pg (27.0-33.0); MEAN CORPUSCULAR HGB CONC 30.3 g/dl (32.0-36.5); MEAN CORPUSCULAR VOLUME 93.5 fl (80.0-96.0); PLATELET COUNT, AUTOMATED 350 10^3/uL (150-450); RED CELL DISTRIBUTION WIDTH 17.3 % (11.5-14.5); WHITE BLOOD COUNT 9.4 10^3/uL (4.0-10.0)
== END ==
LOC: M SFHCPLAZ 15:11
PROVIDERS: ATTEND Nurse Practitioner Family
DX: D50.9 Iron deficiency anemia, unspecified (principal)
CPT/HCPCS: 36415; 85027; 85610; G0463

== ENCOUNTER 2017-06-05 04:15 | Observation (INO) | payer MEDICARE, BC ==
[~2017-06-05] VITALS: Ht 167.6 cm; Wt 79.5 kg
[~2017-06-05 04:15] MED LIST changes: -ACET-683 PO; -FERR325T16 PO; -SPIR25TA2 PO; -TORS20TA2 PO
[2017-06-05] MEDS ORDERED: OXYMETAZOLINE NASAL SPRAY (AFRIN) ONE (04:30)
[2017-06-05 05:09] LABS: BASO # 0.1 10^3/uL (0.0-0.2); BASO % 0.5 % (0.0-1.0); EOS # 0.2 10^3/uL (0.0-0.50); IMMATURE GRANULOCYTE % 0.7 % (0-0); LYMPH # 1.4 10^3/uL (1.5-4.5); LYMPH % 12.4 % (24.0-44.0); MEAN CORPUSCULAR HEMOGLOBIN 29.4 pg (27.0-33.0); MEAN CORPUSCULAR VOLUME 94.5 fl (80.0-96.0); MONO % 8.4 % (0.0-5.0); NEUTROPHILS # 8.7 10^3/uL (1.8-7.7); PLATELET COUNT, AUTOMATED 336 10^3/uL (150-450); RED CELL DISTRIBUTION WIDTH 18.4 % (11.5-14.5); WHITE BLOOD COUNT 11.5 10^3/uL (4.0-10.0)
[2017-06-05 05:23] LABS: INR 2.39
[2017-06-05] MEDS ORDERED: NS 500 ML IV ONE (06:00)
[2017-06-05] MEDS ORDERED: ACETAMINOPHEN TAB 650MG DOSE (2X325MG) PO PRN (06:15)
[2017-06-05] MEDS ORDERED: SPIR25TA2 PO (06:23)
[2017-06-05] MEDS ORDERED: ACET-683 PO (06:23)
[2017-06-05] MEDS ORDERED: FERR325T16 PO (06:23)
[2017-06-05] MEDS ORDERED: GABA-282 PO (06:23)
[2017-06-05] MEDS ORDERED: TORS20TA2 PO (06:23)
--- NOTE | 2017-06-05 06:40 | HPE ---
DATE OF ADMISSION: 06/05/2017 PRIMARY CARE PROVIDER: Dr. Lucio Tidwell CHIEF COMPLAINT: Nose bleeding for two days. HISTORY OF PRESENT ILLNESS: The patient is a 76-year-old white female with multiple chronic medical conditions including mechanical valve on Coumadin who presented to the emergency room (ER) for evaluation of nose bleeding in the last two days. History is provided by herself as well as by review of chart. Per the medical record, she had been hospitalized here in the past due to nose bleeding. She was seen with the ENT specialist who recommended to use a humidifier since the patient is on oxygen supplement which can cause irritation of the nose. Anyway, she stated in the last two days she has intermittent a lot of nose bleeding which brought her to the ER tonight. After she came to the ER, her nose bleeding stopped spontaneously, however, her blood testing indicated her hemoglobin and hematocrit (H and H) was down to 8.6 over 27.7 from two weeks which was 10.5 over 35. Due to multiple comorbidities and ER attending request admitted for observation to make sure she is not bleeding again. Otherwise, she did not have any other complaints. PAST MEDICAL HISTORY: 1. Mechanical mitral valve replacement, on Coumadin. 2. Chronic obstructive pulmonary disease (COPD) on 2 liters of oxygen supplement. 3. Coronary artery disease. 4. Carotid artery disease. 5. Peripheral vascular disease. 6. Hypertension. 7. Dyslipidemia. 8. Chronic kidney disease (CKD) Stage IV. 9. Chronic atrial fibrillation. 10. Obstructive sleep apnea. 11. Chronic anemia. PAST SURGICAL HISTORY: 1. Cardiac bypass surgery. 2. Mechanical mitral valve replacement. 3. Carotid endarterectomy. 4. Renal artery stenting. 5. Superior mesenteric artery stenting. FAMILY HISTORY: Mother with history of COPD and a sister and a brother with brain cancer and heart disease. SOCIAL HISTORY: Ex-smoker, quit a few years ago. Denies alcoholic drinking. No drug abuse. She is a full code. REVIEW OF SYSTEMS: Denies fever. No chills. No headaches. No blurred vision. No shortness of breath. No coughing. No chest pain. No abdominal pain. No diarrhea. No constipation. No tingling or numbness in arms or lower extremities, except general weakness. MEDICATIONS: Reviewed, including Coumadin. PHYSICAL EXAMINATION: VITALS: Temperature 96.8. Heart rate 96. Respiratory rate 16. Blood pressure 129/53. Oxygen saturation 96% on 2 liters nasal cannula. GENERAL: She is awake, alert and oriented times three. She is not in acute distress. HEENT: Atraumatic. Pupils equal round and react to light. No jaundice. Extraocular muscles intact. Ears normal. Nose with no active bleeding. He has oxygen nasal cannula supplement. Mouth: Mucus is dry. NECK: No jugular venous distention (JVD). LUNGS: Diminished breath sounds, but no wheezing. No crackles. HEART: S1, S2. Irregular. ABDOMEN: Soft. Bowel sounds positive. Nontender. EXTREMITIES: No edema in bilateral lower extremities. NEUROLOGIC: Nonfocal. SKIN: No rash. PSYCHOLOGIC: No acute psychosis. DIAGNOSTIC AND LABORATORY STUDIES: CBC and differential with WBC 11.5, H/H 8.6/27.3 and platelets 336. Sodium 136, potassium 4.6, BUN 79, creatinine 2.2, glucose 92 and INR was 2.39. IMPRESSION: 1. Nose bleeding. 2. Chronic anemia. 3. Mechanical mitral valve replacement, on Coumadin, which INR was therapeutic. 4. CKD Stage IV. 5. History of coronary artery disease. 6. History of chronic atrial fibrillation. PLAN: Patient will be admitted for observation. Except dropped hemoglobin, otherwise she is at baseline. She has this recurrent nose bleeding due to the fact she is taking Coumadin because of mechanical valve. Also she will continue her routine medications. She may need to be reevaluated by the ENT specialist. Will recheck CBC at 2:00 p.m. to make sure her H/H is stable and decide whether she needs any transfusion or not.
--- NOTE | 2017-06-05 09:44 | IPN ---
DATE: 06/05/2017 Nadeen is seen in the ER in interim bed. She was admitted with some anemia secondary to recurrent epistaxis. No epistaxis overnight. It was my understanding she was going to be transfused, but that has not taken place yet. She is on chronic anticoagulant therapy which cannot be discontinued due to a mechanical mitral valve. PHYSICAL EXAMINATION: No epistaxis. Lungs: Clear. Heart: Regular rhythm with crisp prosthetic click. Abdomen: Soft. Nontender. No peripheral edema. LABS: Lab work was all from this morning. INR was therapeutic. PLAN: I am going to transfuse her a unit of blood and then she can be discharged after the transfusion.
[2017-06-05 11:38] LABS: BASO # 0.1 10^3/uL (0.0-0.2); BASO % 0.6 % (0.0-1.0); EOS # 0.2 10^3/uL (0.0-0.50); EOS % 1.9 % (0.0-3.0); IMMATURE GRANULOCYTE % 0.7 % (0-0); LYMPH # 1.9 10^3/uL (1.5-4.5); LYMPH % 21.1 % (24.0-44.0); MEAN CORPUSCULAR HEMOGLOBIN 29.4 pg (27.0-33.0); MEAN CORPUSCULAR HGB CONC 31.4 g/dl (32.0-36.5); MEAN CORPUSCULAR VOLUME 93.8 fl (80.0-96.0); MONO # 0.8 10^3/uL (0.0-0.8); NEUTROPHILS # 5.9 10^3/uL (1.8-7.7); NEUTROPHILS % 66.7 % (36.0-66.0); PLATELET COUNT, AUTOMATED 240 10^3/uL (150-450); RED CELL DISTRIBUTION WIDTH 17.5 % (11.5-14.5); WHITE BLOOD COUNT 8.8 10^3/uL (4.0-10.0)
[2017-06-05 13:46] VITALS: BP 122/74
== END 2017-06-05 13:32 | disposition home or self-care (01) ==
LOC: M ED 04:15 → M ED INP 04:16
PROVIDERS: ADMIT Hospitalist; ATTEND Family Medicine
DX: R04.0 Epistaxis (principal); D64.9 Anemia, unspecified; Z95.2 Presence of prosthetic heart valve; N18.4 Chronic kidney disease, stage 4 (severe); I25.10 Atherosclerotic heart disease of native coronary artery without angina pectoris; I48.2 Chronic atrial fibrillation; Z95.1 Presence of aortocoronary bypass graft; J44.9 Chronic obstructive pulmonary disease, unspecified; I73.9 Peripheral vascular disease, unspecified; I65.29 Occlusion and stenosis of unspecified carotid artery; I13.0 Hypertensive heart and chronic kidney disease with heart failure and stage 1 through stage 4 chronic kidney disease, or unspecified chronic kidney disease; E78.5 Hyperlipidemia, unspecified; G47.33 Obstructive sleep apnea (adult) (pediatric); Z79.899 Other long term (current) drug therapy; Z79.01 Long term (current) use of anticoagulants; Z87.891 Personal history of nicotine dependence; Z88.5 Allergy status to narcotic agent; Z88.1 Allergy status to other antibiotic agents; Z88.2 Allergy status to sulfonamides
CPT/HCPCS: 36415; 36430; 85025; 85610; 85730; 86850; 86900; 86901; 86920; 99284; G0378; P9016

== ENCOUNTER → 2017-06-08 | Outpatient (REF) | payer MEDICARE, BC ==
[~2017-06-08] MED LIST changes: +ACET-683 PO; +FERR325T16 PO; +SPIR25TA2 PO; +TORS20TA2 PO
[2017-06-08 14:47] LABS: ALBUMIN 3.5 GM/DL (3.2-5.2); CALCIUM LEVEL 9.2 MG/DL (8.8-10.2); CREATININE FOR GFR 2.51 MG/DL (0.55-1.02); GLOMERULAR FILTRATION RATE 19.8 (>39); PHOSPHORUS LEVEL 5.8 MG/DL (2.5-4.9)
[2017-06-08 14:55] LABS: POTASSIUM SERUM 5.6 MEQ/L (3.5-5.1)
== END ==
LOC: M LABDRAWP 13:19
PROVIDERS: ATTEND Nurse Practitioner Family
DX: I50.32 Chronic diastolic (congestive) heart failure (principal)

== ENCOUNTER → 2017-06-12 | Outpatient (REF) | payer MEDICARE, BC ==
[2017-06-12 18:53] LABS: PERCENT SATURATION 36.6 % (13.2-45.0)
== END ==
LOC: M LAB REF 16:55
PROVIDERS: ATTEND Internal Medicine Nephrology
DX: N39.0 Urinary tract infection, site not specified (principal); D50.0 Iron deficiency anemia secondary to blood loss (chronic)

== ENCOUNTER → 2017-06-17 | Outpatient (CLI) | payer MEDICARE, BC ==
[2017-06-17 16:50] LABS: MEAN CORPUSCULAR HGB CONC 31.5 g/dl (32.0-36.5); MEAN CORPUSCULAR VOLUME 98.4 fl (80.0-96.0); PLATELET COUNT, AUTOMATED 308 10^3/uL (150-450); RED CELL DISTRIBUTION WIDTH 18.7 % (11.5-14.5); WHITE BLOOD COUNT 9.2 10^3/uL (4.0-10.0)
== END ==
LOC: M WUC 13:24
DX: D50.0 Iron deficiency anemia secondary to blood loss (chronic) (principal)
CPT/HCPCS: 85027

== ENCOUNTER → 2017-07-03 | Outpatient (REF) | payer MEDICARE, BC ==
[2017-07-03 13:50] LABS: BASO # 0.1 10^3/uL (0.0-0.2); BASO % 0.7 % (0.0-1.0); EOS # 0.3 10^3/uL (0.0-0.50); EOS % 2.6 % (0.0-3.0); HEMATOCRIT 30.6 % (36.0-47.0); HEMOGLOBIN 9.4 g/dl (12.0-16.0); IMMATURE GRANULOCYTE # 0.2 10^3/uL (0-0); LYMPH # 1.8 10^3/uL (1.5-4.5); LYMPH % 17.9 % (24.0-44.0); MEAN CORPUSCULAR HGB CONC 30.7 g/dl (32.0-36.5); MEAN CORPUSCULAR VOLUME 97.8 fl (80.0-96.0); MONO # 1.1 10^3/uL (0.0-0.8); MONO % 11.6 % (0.0-5.0); NEUTROPHILS # 6.4 10^3/uL (1.8-7.7); NEUTROPHILS % 65.2 % (36.0-66.0); PLATELET COUNT, AUTOMATED 309 10^3/uL (150-450); RED BLOOD COUNT 3.13 10^6/uL (4.00-5.40); RED CELL DISTRIBUTION WIDTH 17.6 % (11.5-14.5); WHITE BLOOD COUNT 9.8 10^3/uL (4.0-10.0)
== END ==
LOC: M SFHCPLAZ 10:52
DX: D50.0 Iron deficiency anemia secondary to blood loss (chronic) (principal)
CPT/HCPCS: 85025

== ENCOUNTER → 2017-07-14 | Outpatient (CLI) | payer MEDICARE, BC | LOC: M RAD 12:23 | DX: Z01.818 Encounter for other preprocedural examination (principal); N18.6 End stage renal disease | CPT/HCPCS: G0365 ==

== ENCOUNTER 2017-07-25 12:50 | Inpatient (IN) | payer MEDICARE, BC ==
[2017-07-25 13:14] LABS: ABG BASE EXCESS -14.9 (-2.0-2.0); ABG HCO3 14.3 MEQ/L (22.0-26.0); ABG O2 SATURATION 92.5 % (95.0-99.0); ABG PARTIAL PRESSURE CO2 49.6 mmHg (35.0-45.0); ABG PARTIAL PRESSURE O2 88.1 mmHg (75.0-100.0); ABG STANDARD HCO3 12.7 MEQ/L (22.0-26.0); ABG TOTAL CO2 15.8 MEQ/L (23.0-31.0)
[2017-07-25] MEDS: NS 1,000 ML IV ×3 (13:15→14:30)
[2017-07-25 13:17] LABS: ABG pH (ARTERIAL) 7.078 UNITS (7.350-7.450)
[2017-07-25 13:19] LABS: BASO # 0.1 10^3/uL (0.0-0.2); BASO % 0.3 % (0.0-1.0); EOS % 0.1 % (0.0-3.0); HEMATOCRIT 26.8 % (36.0-47.0); HEMOGLOBIN 7.9 g/dl (12.0-16.0); IMMATURE GRANULOCYTE # 0.9 10^3/uL (0-0); LYMPH # 1.2 10^3/uL (1.5-4.5); LYMPH % 6.6 % (24.0-44.0); MEAN CORPUSCULAR HEMOGLOBIN 31.7 pg (27.0-33.0); MEAN CORPUSCULAR HGB CONC 29.5 g/dl (32.0-36.5); MEAN CORPUSCULAR VOLUME 107.6 fl (80.0-96.0); MONO # 1.7 10^3/uL (0.0-0.8); MONO % 9.2 % (0.0-5.0); NEUTROPHILS # 14.1 10^3/uL (1.8-7.7); NEUTROPHILS % 78.8 % (36.0-66.0); PLATELET COUNT, AUTOMATED 351 10^3/uL (150-450); RED BLOOD COUNT 2.49 10^6/uL (4.00-5.40); RED CELL DISTRIBUTION WIDTH 19.2 % (11.5-14.5); WHITE BLOOD COUNT 17.9 10^3/uL (4.0-10.0)
[2017-07-25 13:34] LABS: AMMONIA 26 uMOL/L (<32)
[2017-07-25 13:41] LABS: ALBUMIN 3.3 GM/DL (3.2-5.2); ALBUMIN/GLOBULIN RATIO 0.69 (1.00-1.93); ALKALINE PHOSPHATASE 92 U/L (45-117); ALT/SGPT 276 U/L (12-78); ANION GAP 18 MEQ/L (8-16); AST/SGOT 398 U/L (7-37); BILIRUBIN,TOTAL 0.9 MG/DL (0.2-1.0); BLOOD UREA NITROGEN 96 MG/DL (7-18); CALCIUM LEVEL 8.7 MG/DL (8.8-10.2); CARBON DIOXIDE LEVEL 16 MEQ/L (21-32); CHLORIDE LEVEL 97 MEQ/L (98-107); CREATININE FOR GFR 3.97 MG/DL (0.55-1.30); GLOMERULAR FILTRATION RATE 11.7 (>39); GLUCOSE, FASTING 139 MG/DL (70-100); SODIUM LEVEL 131 MEQ/L (136-145); TOTAL PROTEIN 8.1 GM/DL (6.4-8.2)
[2017-07-25 13:50] LABS: BILIRUBIN,DIRECT 0.3 MG/DL (0.0-0.2); CK-MB VALUE MASS 31.4 NG/ML (0.0-3.6); CPK CREATINE PHOSPHOKINASE 1792 U/L (26-192); MB/CK RELATIVE INDEX 1.75 (< OR =4); SALICYLATE LEVEL < 1.7 MG/DL (5.0-30.0)
[2017-07-25] MEDS ORDERED: DOBUTamine 500 MG/250 ML BAG IN D5W (2,000 MCG/ML) (J1250) As Ordered (13:51)
[2017-07-25 13:52] LABS: TROPONIN I 4.55 NG/ML (< 0.10)
[2017-07-25] MEDS ORDERED: LORazepam 2 MG/ML VIAL (J2060) As Ordered (13:52)
[2017-07-25 13:53] LABS: ACETAMINOPHEN LEVEL < 2.0 UG/ML (10.0-30.0)
[2017-07-25] MEDS: DOBUTamine HCL 500,000 MCG in APPROPRIATE DILUENT 1 EA IV (13:55)
[2017-07-25] MEDS: LORazepam 2 MG/ML VIAL (J2060) IV ×2 (13:55→14:05)
[2017-07-25] MEDS: NOREPINEPHRINE BITARTRATE 8 MG in D5W 500 ML IV (15:01)
[2017-07-25 15:03] LABS: INR 2.32; PROTHROMBIN TIME 26.4 SECONDS (12.4-14.5)
[2017-07-25 15:04] LABS: PARTIAL THROMBOPLASTIN TIME 38.3 SECONDS (26.8-37.9)
[2017-07-25 15:09] LABS: KETONE, URINE AUTO RFX NEGATIVE (NEGATIVE); LEUKOCYTE ESTERASE UR AUTO RFX 3+ (NEGATIVE); NITRITE, URINE AUTO RFX NEGATIVE (NEGATIVE); RBC, URINE AUTO RFX 26 /HPF (0-3); SPECIFIC GRAVITY UR AUTO RFX 1.011 (1.002-1.035); SQUAM EPITHELIAL CELL UR AURFX 2 /HPF (0-6); WBC, URINE AUTO RFX 120 /HPF (0-3)
[2017-07-25 15:11] LABS: AMPHETAMINES LEVEL URINE NEGATIVE (NEGATIVE); BARBITURATES URINE NEGATIVE (NEGATIVE); BENZODIAZEPINES URINE NEGATIVE (NEGATIVE); CANNABINOIDS URINE NEGATIVE (NEGATIVE); COCAINE METABOLITE URINE NEGATIVE (NEGATIVE); METHADONE URINE NEGATIVE (NEGATIVE); OPIATES URINE NEGATIVE (NEGATIVE); PHENCYCLIDINE URINE NEGATIVE (NEGATIVE)
[2017-07-25] MEDS ORDERED: GLUCAGON FOR INJ 1 MG VIAL (J1610) SC (15:15)
[2017-07-25] MEDS ORDERED: DEXTROSE 50% 50 ML SYRINGE IV (15:15)
[2017-07-25] MEDS ORDERED: GLUCOSE 4 GM CHEW TABLET PO (15:15)
[2017-07-25 16:32] LABS: ABG BASE EXCESS -14.5 (-2.0-2.0); ABG HCO3 12.9 MEQ/L (22.0-26.0); ABG O2 SATURATION 84.7 % (95.0-99.0); ABG PARTIAL PRESSURE CO2 36.1 mmHg (35.0-45.0); ABG PARTIAL PRESSURE O2 63.5 mmHg (75.0-100.0); ABG STANDARD HCO3 12.8 MEQ/L (22.0-26.0)
[2017-07-25] MEDS: CLOPIDOGREL 75 MG TAB PO ×2 (17:21→17:51)
[2017-07-25] MEDS: ASPIRIN 325 MG TAB NG (17:22)
[2017-07-25] MEDS ORDERED: HEPARIN SOD (PORCINE) 5000 UNITS/ML VIAL IV (17:30)
[2017-07-25] MEDS: IPRATROPIUM 0.5MG/ALBUTEROL 2.5MG INH SOL UD 3ML (DUONEB)(J7620) NEB ×2 (17:34→20:04)
[2017-07-25] MEDS ORDERED: CLOPIDOGREL 75 MG TAB As Ordered (17:39)
[2017-07-25] MEDS ORDERED: HEPARIN 25,000 UNITS/250 ML D5W BAG (100 UNITS/ML) As Ordered (17:40)
[2017-07-25 17:58] LABS: ABG DEVICE MECHAN. VENT; ABG HCO3 13.6 MEQ/L (22.0-26.0); ABG O2 SATURATION 88.4 % (95.0-99.0); ABG PARTIAL PRESSURE O2 69.7 mmHg (75.0-100.0); ABG STANDARD HCO3 13.2 MEQ/L (22.0-26.0); ABG TOTAL CO2 14.8 MEQ/L (23.0-31.0)
[2017-07-25 18:01] LABS: ABG pH (ARTERIAL) 7.161 UNITS (7.350-7.450)
[2017-07-25] MEDS: HEPARIN DRIP 25,000 UNITS in APPROPRIATE DILUENT 1 EA IV (18:05)
[2017-07-25] MEDS: HumaLOG INSULIN (NovoLOG) PER UNIT SC ×2 (18:05→23:52)
[2017-07-25 18:08] LABS: MEAN CORPUSCULAR HEMOGLOBIN 30.9 pg (27.0-33.0); MEAN CORPUSCULAR HGB CONC 29.6 g/dl (32.0-36.5); MEAN CORPUSCULAR VOLUME 104.5 fl (80.0-96.0); PLATELET COUNT, AUTOMATED 276 10^3/uL (150-450); RED CELL DISTRIBUTION WIDTH 19.2 % (11.5-14.5); WHITE BLOOD COUNT 15.7 10^3/uL (4.0-10.0)
[2017-07-25 18:16] LABS: ALBUMIN 2.7 GM/DL (3.2-5.2); ANION GAP 13 MEQ/L (8-16); BLOOD UREA NITROGEN 93 MG/DL (7-18); CARBON DIOXIDE LEVEL 17 MEQ/L (21-32); CHLORIDE LEVEL 101 MEQ/L (98-107); CREATININE FOR GFR 3.56 MG/DL (0.55-1.30); GLOMERULAR FILTRATION RATE 13.2 (>39); GLUCOSE, FASTING 249 MG/DL (70-100); MAGNESIUM LEVEL 2.6 MG/DL (1.8-2.4); PHOSPHORUS LEVEL 8.2 MG/DL (2.5-4.9); SODIUM LEVEL 131 MEQ/L (136-145)
[2017-07-25 18:18] LABS: HEMOGLOBIN 6.8 g/dl (12.0-16.0)
[2017-07-25 18:25] LABS: CALCIUM LEVEL 7.4 MG/DL (8.8-10.2)
[2017-07-25 18:30] LABS: CK-MB VALUE MASS 51.6 NG/ML (0.0-3.6); CPK CREATINE PHOSPHOKINASE 2758 U/L (26-192); MB/CK RELATIVE INDEX 1.87 (< OR =4); POTASSIUM SERUM 5.5 MEQ/L (3.5-5.1)
[2017-07-25 18:40] LABS: TROPONIN I 6.09 NG/ML (< 0.10)
[2017-07-25 19:08] LABS: ABG BASE EXCESS -11.8 (-2.0-2.0); ABG HCO3 14.5 MEQ/L (22.0-26.0); ABG O2 SATURATION 93.6 % (95.0-99.0); ABG PARTIAL PRESSURE CO2 34.4 mmHg (35.0-45.0); ABG PARTIAL PRESSURE O2 80.1 mmHg (75.0-100.0); ABG STANDARD HCO3 14.9 MEQ/L (22.0-26.0); ABG TOTAL CO2 15.6 MEQ/L (23.0-31.0)
[2017-07-25 19:10] LABS: ABG pH (ARTERIAL) 7.243 UNITS (7.350-7.450)
[2017-07-25] MEDS: FUROSEMIDE injection 250 MG in D5W 225 ML IV (19:37)
[2017-07-25] MEDS: SODIUM BICARBONATE 150 MEQ in D5W 1,000 ML IV (19:37)
[2017-07-25 19:42] LABS: BEDSIDE GLUCOSE 281 MG/DL (83-110)
[2017-07-25 20:40] LABS: IMMEDIATE SPIN CROSSMATCH 1 2
[2017-07-25] MEDS: CHLORHEXIDINE ORAL RINSE 0.12%/15ML 120ML BOTTLE MT (22:54)
[2017-07-25] MEDS: ATORVASTATIN 20 MG TAB PO (22:54)
[2017-07-25 23:57] LABS: BEDSIDE GLUCOSE 210 MG/DL (83-110)
[2017-07-26 01:03] LABS: PARTIAL THROMBOPLASTIN TIME 151.6 SECONDS (26.8-37.9)
[2017-07-26 05:23] LABS: BASO % 0.2 % (0.0-1.0); EOS % 0.1 % (0.0-3.0); HEMATOCRIT 27.6 % (36.0-47.0); IMMATURE GRANULOCYTE # 0.3 10^3/uL (0-0); IMMATURE GRANULOCYTE % 1.7 % (0-0); LYMPH # 0.5 10^3/uL (1.5-4.5); LYMPH % 2.6 % (24.0-44.0); MEAN CORPUSCULAR HEMOGLOBIN 30.9 pg (27.0-33.0); MEAN CORPUSCULAR HGB CONC 32.2 g/dl (32.0-36.5); MEAN CORPUSCULAR VOLUME 95.8 fl (80.0-96.0); MONO # 0.9 10^3/uL (0.0-0.8); MONO % 4.9 % (0.0-5.0); NEUTROPHILS # 17.1 10^3/uL (1.8-7.7); NEUTROPHILS % 90.5 % (36.0-66.0); PLATELET COUNT, AUTOMATED 243 10^3/uL (150-450); RED BLOOD COUNT 2.88 10^6/uL (4.00-5.40); RED CELL DISTRIBUTION WIDTH 18.6 % (11.5-14.5); WHITE BLOOD COUNT 18.9 10^3/uL (4.0-10.0)
[2017-07-26 05:28] LABS: HEMOGLOBIN 8.9 g/dl (12.0-16.0)
[2017-07-26 05:42] LABS: ABG BASE EXCESS -2.7 (-2.0-2.0); ABG HCO3 21.7 MEQ/L (22.0-26.0); ABG O2 SATURATION 98.4 % (95.0-99.0); ABG PARTIAL PRESSURE CO2 35.7 mmHg (35.0-45.0); ABG PARTIAL PRESSURE O2 103.6 mmHg (75.0-100.0); ABG STANDARD HCO3 22.2 MEQ/L (22.0-26.0); ABG TOTAL CO2 22.8 MEQ/L (23.0-31.0); ABG pH (ARTERIAL) 7.401 UNITS (7.350-7.450)
[2017-07-26] MEDS: MIDAZOLAM INJ 2 MG/2 ML VIAL (J2250) IV ×2 (05:43→09:25)
[2017-07-26 06:19] LABS: ALBUMIN 2.7 GM/DL (3.2-5.2); ALBUMIN/GLOBULIN RATIO 0.66 (1.00-1.93); ALKALINE PHOSPHATASE 77 U/L (45-117); ALT/SGPT 2416 U/L (12-78); ANION GAP 10 MEQ/L (8-16); AST/SGOT 3245 U/L (7-37); BILIRUBIN,TOTAL 3.4 MG/DL (0.2-1.0); BLOOD UREA NITROGEN 94 MG/DL (7-18); CALCIUM LEVEL 7.5 MG/DL (8.8-10.2); CARBON DIOXIDE LEVEL 23 MEQ/L (21-32); CHLORIDE LEVEL 97 MEQ/L (98-107); CHOLESTEROL LEVEL 52 MG/DL (< 200); CPK CREATINE PHOSPHOKINASE 9021 U/L (26-192); CREATININE FOR GFR 3.03 MG/DL (0.55-1.30); GLOMERULAR FILTRATION RATE 15.9 (>39); GLUCOSE, FASTING 158 MG/DL (70-100); LDH LACTATE DEHYDROGENASE 3759 U/L (84-246); MAGNESIUM LEVEL 2.3 MG/DL (1.8-2.4); PHOSPHORUS LEVEL 5.6 MG/DL (2.5-4.9); POTASSIUM SERUM 4.6 MEQ/L (3.5-5.1); SODIUM LEVEL 130 MEQ/L (136-145); TOTAL PROTEIN 6.8 GM/DL (6.4-8.2); TRIGLYCERIDES LEVEL 60 MG/DL (<150)
[2017-07-26] MEDS: HumaLOG INSULIN (NovoLOG) PER UNIT SC ×3 (06:45→16:50)
[2017-07-26] MEDS: MORPHINE 2 MG/ML 1ML SYRINGE (J2270) IV (07:31)
[2017-07-26] MEDS: IPRATROPIUM 0.5MG/ALBUTEROL 2.5MG INH SOL UD 3ML (DUONEB)(J7620) NEB ×4 (08:31→19:47)
[2017-07-26] MEDS ORDERED: AMIODARONE HCL 150 MG/100 ML PREMIXED BAG (NEXTERONE) As Ordered (09:12)
[2017-07-26] MEDS: AMIODARONE HCL 150 MG in APPROPRIATE DILUENT 1 EA IV ×2 (09:19→12:17)
[2017-07-26] MEDS: PANTOPRAZOLE 40MG INJ (PROTONIX) (C9113) IV (09:25)
[2017-07-26] MEDS: ASPIRIN 325 MG TAB NG (09:25)
[2017-07-26] MEDS: CHLORHEXIDINE ORAL RINSE 0.12%/15ML 120ML BOTTLE MT ×2 (09:26→21:00)
[2017-07-26] MEDS: CLOPIDOGREL 75 MG TAB PO (09:26)
[2017-07-26 09:45] LABS: PARTIAL THROMBOPLASTIN TIME 189.4 SECONDS (26.8-37.9)
[2017-07-26 10:59] LABS: INR 3.46; PROTHROMBIN TIME 36.5 SECONDS (12.4-14.5)
[2017-07-26 11:12] LABS: ABG HCO3 22.8 MEQ/L (22.0-26.0); ABG O2 SATURATION 95.6 % (95.0-99.0); ABG PARTIAL PRESSURE CO2 34.8 mmHg (35.0-45.0); ABG PARTIAL PRESSURE O2 79.6 mmHg (75.0-100.0); ABG STANDARD HCO3 23.6 MEQ/L (22.0-26.0); ABG TOTAL CO2 23.9 MEQ/L (23.0-31.0); ABG pH (ARTERIAL) 7.435 UNITS (7.350-7.450)
[2017-07-26 12:14] LABS: BEDSIDE GLUCOSE 171 MG/DL (83-110)
[2017-07-26] MEDS: NYSTATIN 100,000 UNITS/GM TOPICAL PWD 15 GM TOP ×2 (14:07→21:18)
[2017-07-26] MEDS: METOPROLOL TART 25 MG TABLET PO ×2 (14:07→21:17)
[2017-07-26] MEDS: HEPARIN DRIP 25,000 UNITS in APPROPRIATE DILUENT 1 EA IV (15:23)
[2017-07-26 16:53] LABS: BEDSIDE GLUCOSE 160 MG/DL (83-110)
[2017-07-26 17:19] LABS: HEMATOCRIT 25.4 % (36.0-47.0); HEMOGLOBIN 8.2 g/dl (12.0-16.0)
[2017-07-26] MEDS: ATORVASTATIN 20 MG TAB PO (21:17)
[2017-07-27 00:36] LABS: BEDSIDE GLUCOSE 151 MG/DL (83-110)
[2017-07-27 00:49] LABS: PARTIAL THROMBOPLASTIN TIME 90.8 SECONDS (26.8-37.9)
[2017-07-27 05:56] LABS: BASO % 0.2 % (0.0-1.0); HEMOGLOBIN 7.5 g/dl (12.0-16.0); IMMATURE GRANULOCYTE # 0.4 10^3/uL (0-0); IMMATURE GRANULOCYTE % 1.5 % (0-0); LYMPH # 0.6 10^3/uL (1.5-4.5); LYMPH % 2.5 % (24.0-44.0); MEAN CORPUSCULAR HEMOGLOBIN 30.9 pg (27.0-33.0); MEAN CORPUSCULAR HGB CONC 32.6 g/dl (32.0-36.5); MEAN CORPUSCULAR VOLUME 94.7 fl (80.0-96.0); MONO # 1.2 10^3/uL (0.0-0.8); MONO % 5.1 % (0.0-5.0); NEUTROPHILS # 21.2 10^3/uL (1.8-7.7); NEUTROPHILS % 90.7 % (36.0-66.0); PLATELET COUNT, AUTOMATED 266 10^3/uL (150-450); RED BLOOD COUNT 2.43 10^6/uL (4.00-5.40); RED CELL DISTRIBUTION WIDTH 19.6 % (11.5-14.5); WHITE BLOOD COUNT 23.3 10^3/uL (4.0-10.0)
[2017-07-27] MEDS: HumaLOG INSULIN (NovoLOG) PER UNIT SC ×5 (06:00→20:26)
[2017-07-27 06:05] LABS: ABG BASE EXCESS -1.7 (-2.0-2.0); ABG HCO3 22.3 MEQ/L (22.0-26.0); ABG O2 SATURATION 95.4 % (95.0-99.0); ABG PARTIAL PRESSURE CO2 34.3 mmHg (35.0-45.0); ABG PARTIAL PRESSURE O2 82.2 mmHg (75.0-100.0); ABG TOTAL CO2 23.4 MEQ/L (23.0-31.0); ABG pH (ARTERIAL) 7.431 UNITS (7.350-7.450)
[2017-07-27 06:09] LABS: PARTIAL THROMBOPLASTIN TIME 77.2 SECONDS (26.8-37.9)
[2017-07-27] MEDS: METOPROLOL TART 25 MG TABLET PO (06:37)
[2017-07-27 07:09] LABS: ALBUMIN 2.6 GM/DL (3.2-5.2); ALBUMIN/GLOBULIN RATIO 0.76 (1.00-1.93); ALKALINE PHOSPHATASE 80 U/L (45-117); ALT/SGPT 2253 U/L (12-78); ANION GAP 13 MEQ/L (8-16); AST/SGOT 1930 U/L (7-37); BILIRUBIN,TOTAL 4.6 MG/DL (0.2-1.0); BLOOD UREA NITROGEN 124 MG/DL (7-18); CALCIUM LEVEL 7.1 MG/DL (8.8-10.2); CARBON DIOXIDE LEVEL 23 MEQ/L (21-32); CHLORIDE LEVEL 96 MEQ/L (98-107); CHOLESTEROL LEVEL 54 MG/DL (< 200); CPK CREATINE PHOSPHOKINASE 6646 U/L (26-192); CREATININE FOR GFR 3.18 MG/DL (0.55-1.30); GLOMERULAR FILTRATION RATE 15.1 (>39); GLUCOSE, FASTING 139 MG/DL (70-100); MAGNESIUM LEVEL 2.1 MG/DL (1.8-2.4); PHOSPHORUS LEVEL 5.3 MG/DL (2.5-4.9); POTASSIUM SERUM 3.9 MEQ/L (3.5-5.1); SODIUM LEVEL 132 MEQ/L (136-145); TRIGLYCERIDES LEVEL 120 MG/DL (<150)
[2017-07-27] MEDS: IPRATROPIUM 0.5MG/ALBUTEROL 2.5MG INH SOL UD 3ML (DUONEB)(J7620) NEB ×4 (07:09→19:41)
[2017-07-27 07:10] LABS: LDH LACTATE DEHYDROGENASE 2115 U/L (84-246)
[2017-07-27] MEDS: CHLORHEXIDINE ORAL RINSE 0.12%/15ML 120ML BOTTLE MT (09:00)
[2017-07-27] MEDS ORDERED: ASPIRIN 81 MG ENTERIC TAB PO (09:00)
[2017-07-27] MEDS: CLOPIDOGREL 75 MG TAB PO (10:35)
[2017-07-27] MEDS: ASPIRIN 325 MG TAB NG (10:35)
[2017-07-27] MEDS: NYSTATIN 100,000 UNITS/GM TOPICAL PWD 15 GM TOP ×2 (10:35→20:27)
[2017-07-27] MEDS: PANTOPRAZOLE 40MG INJ (PROTONIX) (C9113) IV (10:35)
[2017-07-27 12:02] LABS: BEDSIDE GLUCOSE 146 MG/DL (83-110)
[2017-07-27 13:14] LABS: PARTIAL THROMBOPLASTIN TIME 79.9 SECONDS (26.8-37.9)
[2017-07-27] MEDS: GABAPENTIN 300 MG CAP PO ×2 (15:12→20:26)
[2017-07-27 16:24] LABS: IMMEDIATE SPIN CROSSMATCH 1 2
[2017-07-27 16:58] LABS: BEDSIDE GLUCOSE 132 MG/DL (83-110)
[2017-07-27] MEDS: WARFARIN SOD 2 MG TAB PO ×2 (17:00→17:41)
[2017-07-27] MEDS: SUCRALFATE 1 GM TAB PO (17:41)
[2017-07-27 19:12] LABS: PROTHROMBIN TIME 55.1 SECONDS (12.4-14.5)
[2017-07-27 19:18] LABS: INR 5.74
[2017-07-27 20:11] LABS: HEMATOCRIT 26.7 % (36.0-47.0); HEMOGLOBIN 8.9 g/dl (12.0-16.0); MEAN CORPUSCULAR HGB CONC 33.3 g/dl (32.0-36.5); PLATELET COUNT, AUTOMATED 248 10^3/uL (150-450); RED BLOOD COUNT 2.87 10^6/uL (4.00-5.40); RED CELL DISTRIBUTION WIDTH 18.3 % (11.5-14.5); WHITE BLOOD COUNT 22.8 10^3/uL (4.0-10.0)
[2017-07-27] MEDS: CARVedilol 6.25 MG TAB PO (20:25)
[2017-07-27] MEDS: ATORVASTATIN 20 MG TAB PO (20:26)
[2017-07-27 20:35] LABS: BEDSIDE GLUCOSE 141 MG/DL (83-110)
[2017-07-28 06:29] LABS: BASO % 0.2 % (0.0-1.0); HEMATOCRIT 24.5 % (36.0-47.0); HEMOGLOBIN 8.2 g/dl (12.0-16.0); IMMATURE GRANULOCYTE # 0.4 10^3/uL (0-0); LYMPH # 0.5 10^3/uL (1.5-4.5); LYMPH % 2.6 % (24.0-44.0); MEAN CORPUSCULAR HEMOGLOBIN 31.1 pg (27.0-33.0); MEAN CORPUSCULAR HGB CONC 33.5 g/dl (32.0-36.5); MEAN CORPUSCULAR VOLUME 92.8 fl (80.0-96.0); MONO # 1.6 10^3/uL (0.0-0.8); MONO % 7.4 % (0.0-5.0); NEUTROPHILS # 18.6 10^3/uL (1.8-7.7); NEUTROPHILS % 87.8 % (36.0-66.0); PLATELET COUNT, AUTOMATED 227 10^3/uL (150-450); RED BLOOD COUNT 2.64 10^6/uL (4.00-5.40); RED CELL DISTRIBUTION WIDTH 18.8 % (11.5-14.5); WHITE BLOOD COUNT 21.1 10^3/uL (4.0-10.0)
[2017-07-28 06:42] LABS: PROTHROMBIN TIME 54.4 SECONDS (12.4-14.5)
[2017-07-28 06:43] LABS: PARTIAL THROMBOPLASTIN TIME 47.9 SECONDS (26.8-37.9)
[2017-07-28 06:45] LABS: INR 5.66
[2017-07-28 06:55] LABS: ABG BASE EXCESS -1.7 (-2.0-2.0); ABG HCO3 21.6 MEQ/L (22.0-26.0); ABG O2 SATURATION 91.6 % (95.0-99.0); ABG PARTIAL PRESSURE CO2 31.1 mmHg (35.0-45.0); ABG PARTIAL PRESSURE O2 64.6 mmHg (75.0-100.0); ABG TOTAL CO2 22.6 MEQ/L (23.0-31.0)
[2017-07-28 06:59] LABS: ESTIMATED AVERAGE GLUCOSE 100 MG/DL (60-110); HEMOGLOBIN A1c 5.1 %
[2017-07-28 07:11] LABS: ALBUMIN 2.4 GM/DL (3.2-5.2); ALBUMIN/GLOBULIN RATIO 0.73 (1.00-1.93); ALKALINE PHOSPHATASE 79 U/L (45-117); ALT/SGPT 1554 U/L (12-78); ANION GAP 11 MEQ/L (8-16); AST/SGOT 925 U/L (7-37); BILIRUBIN,TOTAL 2.4 MG/DL (0.2-1.0); BLOOD UREA NITROGEN 147 MG/DL (7-18); CALCIUM LEVEL 7.1 MG/DL (8.8-10.2); CARBON DIOXIDE LEVEL 26 MEQ/L (21-32); CHLORIDE LEVEL 97 MEQ/L (98-107); CHOLESTEROL LEVEL 56 MG/DL (< 200); CPK CREATINE PHOSPHOKINASE 2539 U/L (26-192); CREATININE FOR GFR 2.84 MG/DL (0.55-1.30); GLOMERULAR FILTRATION RATE 17.2 (>39); GLUCOSE, FASTING 141 MG/DL (70-100); LDH LACTATE DEHYDROGENASE 943 U/L (84-246); PHOSPHORUS LEVEL 4.1 MG/DL (2.5-4.9); POTASSIUM SERUM 3.3 MEQ/L (3.5-5.1); SODIUM LEVEL 134 MEQ/L (136-145); TOTAL PROTEIN 5.7 GM/DL (6.4-8.2); TRIGLYCERIDES LEVEL 145 MG/DL (<150)
[2017-07-28] MEDS: IPRATROPIUM 0.5MG/ALBUTEROL 2.5MG INH SOL UD 3ML (DUONEB)(J7620) NEB ×4 (07:50→19:46)
[2017-07-28] MEDS: PANTOPRAZOLE 40MG INJ (PROTONIX) (C9113) IV (08:29)
[2017-07-28] MEDS: ASPIRIN 81 MG ENTERIC TAB PO (08:30)
[2017-07-28] MEDS: GABAPENTIN 300 MG CAP PO (08:30)
[2017-07-28] MEDS: HumaLOG INSULIN (NovoLOG) PER UNIT SC ×4 (08:30→21:00)
[2017-07-28] MEDS: CARVedilol 6.25 MG TAB PO ×2 (08:30→20:04)
[2017-07-28] MEDS: SUCRALFATE 1 GM TAB PO ×3 (08:30→17:04)
[2017-07-28] MEDS: NYSTATIN 100,000 UNITS/GM TOPICAL PWD 15 GM TOP ×2 (08:31→20:05)
[2017-07-28 11:38] LABS: BEDSIDE GLUCOSE 194 MG/DL (83-110)
[2017-07-28] MEDS: POTASSIUM CHLORIDE 10 MEQ SR TABLET PO (13:32)
[2017-07-28 13:35] LABS: HEMATOCRIT 24.6 % (36.0-47.0); HEMOGLOBIN 8.1 g/dl (12.0-16.0)
[2017-07-28 13:58] LABS: TROPONIN I 4.59 NG/ML (< 0.10)
[2017-07-28 17:06] LABS: BEDSIDE GLUCOSE 162 MG/DL (83-110)
[2017-07-28 17:16] LABS: IMMEDIATE SPIN CROSSMATCH 1 1
[2017-07-28] MEDS: ATORVASTATIN 20 MG TAB PO (20:04)
[2017-07-28 20:24] LABS: BEDSIDE GLUCOSE 180 MG/DL (83-110)
[2017-07-28 21:26] LABS: HEMATOCRIT 25.6 % (36.0-47.0); HEMOGLOBIN 8.4 g/dl (12.0-16.0)
[2017-07-29 03:33] LABS: IMMEDIATE SPIN CROSSMATCH 1 1
[2017-07-29] MEDS: IPRATROPIUM 0.5MG/ALBUTEROL 2.5MG INH SOL UD 3ML (DUONEB)(J7620) NEB ×4 (07:07→20:09)
[2017-07-29 08:03] LABS: BASO # 0.1 10^3/uL (0.0-0.2); BASO % 0.2 % (0.0-1.0); HEMATOCRIT 28.4 % (36.0-47.0); HEMOGLOBIN 9.4 g/dl (12.0-16.0); IMMATURE GRANULOCYTE # 0.6 10^3/uL (0-0); IMMATURE GRANULOCYTE % 2.7 % (0-0); LYMPH # 0.7 10^3/uL (1.5-4.5); LYMPH % 3.4 % (24.0-44.0); MEAN CORPUSCULAR HEMOGLOBIN 29.5 pg (27.0-33.0); MEAN CORPUSCULAR HGB CONC 33.1 g/dl (32.0-36.5); MONO % 9.4 % (0.0-5.0); NEUTROPHILS # 17.5 10^3/uL (1.8-7.7); NEUTROPHILS % 84.3 % (36.0-66.0); PLATELET COUNT, AUTOMATED 240 10^3/uL (150-450); RED BLOOD COUNT 3.19 10^6/uL (4.00-5.40); RED CELL DISTRIBUTION WIDTH 20.1 % (11.5-14.5); WHITE BLOOD COUNT 20.8 10^3/uL (4.0-10.0)
[2017-07-29 08:14] LABS: INR 2.78; PROTHROMBIN TIME 30.6 SECONDS (12.4-14.5)
[2017-07-29 08:38] LABS: ALBUMIN 2.3 GM/DL (3.2-5.2); ALBUMIN/GLOBULIN RATIO 0.56 (1.00-1.93); ALKALINE PHOSPHATASE 95 U/L (45-117); ALT/SGPT 984 U/L (12-78); ANION GAP 10 MEQ/L (8-16); AST/SGOT 403 U/L (7-37); BILIRUBIN,TOTAL 1.7 MG/DL (0.2-1.0); CALCIUM LEVEL 7.9 MG/DL (8.8-10.2); CARBON DIOXIDE LEVEL 27 MEQ/L (21-32); CHLORIDE LEVEL 100 MEQ/L (98-107); CHOLESTEROL LEVEL 56 MG/DL (< 200); CPK CREATINE PHOSPHOKINASE 957 U/L (26-192); CREATININE FOR GFR 2.64 MG/DL (0.55-1.30); GLOMERULAR FILTRATION RATE 18.7 (>39); GLUCOSE, FASTING 179 MG/DL (70-100); LDH LACTATE DEHYDROGENASE 638 U/L (84-246); PHOSPHORUS LEVEL 3.6 MG/DL (2.5-4.9); POTASSIUM SERUM 3.3 MEQ/L (3.5-5.1); SODIUM LEVEL 137 MEQ/L (136-145); TOTAL PROTEIN 6.4 GM/DL (6.4-8.2); TRIGLYCERIDES LEVEL 137 MG/DL (<150)
[2017-07-29 08:43] LABS: BLOOD UREA NITROGEN 153 MG/DL (7-18)
[2017-07-29] MEDS: HumaLOG INSULIN (NovoLOG) PER UNIT SC ×4 (08:58→21:30)
[2017-07-29] MEDS: PANTOPRAZOLE 40MG INJ (PROTONIX) (C9113) IV ×2 (09:06→21:30)
[2017-07-29] MEDS: NYSTATIN 100,000 UNITS/GM TOPICAL PWD 15 GM TOP ×2 (09:06→21:30)
[2017-07-29] MEDS: SUCRALFATE 1 GM TAB PO ×4 (09:06→21:30)
[2017-07-29] MEDS: GABAPENTIN 300 MG CAP PO (09:07)
[2017-07-29] MEDS: ASPIRIN 81 MG ENTERIC TAB PO (09:07)
[2017-07-29] MEDS: CARVedilol 6.25 MG TAB PO ×2 (09:10→21:30)
[2017-07-29] MEDS: POTASSIUM CHLORIDE 10% LIQ 20 MEQ/15 ML UDC PO ×2 (10:48→17:43)
[2017-07-29 12:01] LABS: BEDSIDE GLUCOSE 222 MG/DL (83-110)
[2017-07-29] MEDS: guaiFENesin ER 600 MG TAB PO ×2 (12:35→21:30)
[2017-07-29 13:03] LABS: HEMATOCRIT 27.9 % (36.0-47.0)
[2017-07-29] MEDS: FUROSEMIDE 40 MG/4 ML VIAL (J1940) IV (14:05)
[2017-07-29 17:00] LABS: BEDSIDE GLUCOSE 151 MG/DL (83-110)
[2017-07-29] MEDS: FUROSEMIDE 100 MG/10 ML VIAL (J1940) IV (17:21)
[2017-07-29] MEDS: KCL 10MEQ IN 100ML SWI (KRUN) 10 MEQ in APPROPRIATE DILUENT 1 EA IV (17:22)
[2017-07-29 17:41] LABS: ABG BASE EXCESS -3.2 (-2.0-2.0); ABG O2 SATURATION 90.9 % (95.0-99.0); ABG PARTIAL PRESSURE CO2 62.7 mmHg (35.0-45.0); ABG PARTIAL PRESSURE O2 72.8 mmHg (75.0-100.0); ABG STANDARD HCO3 21.7 MEQ/L (22.0-26.0); ABG pH (ARTERIAL) 7.219 UNITS (7.350-7.450)
[2017-07-29 17:47] LABS: HEMATOCRIT 27.8 % (36.0-47.0)
[2017-07-29 17:54] LABS: ANION GAP 8 MEQ/L (8-16); CALCIUM LEVEL 8.3 MG/DL (8.8-10.2); CARBON DIOXIDE LEVEL 29 MEQ/L (21-32); CHLORIDE LEVEL 103 MEQ/L (98-107); CK-MB VALUE MASS 6.5 NG/ML (0.0-3.6); CPK CREATINE PHOSPHOKINASE 742 U/L (26-192); CREATININE FOR GFR 2.68 MG/DL (0.55-1.30); GLOMERULAR FILTRATION RATE 18.3 (>39); GLUCOSE, FASTING 144 MG/DL (70-100); MAGNESIUM LEVEL 2.3 MG/DL (1.8-2.4); MB/CK RELATIVE INDEX 0.87 (< OR =4); POTASSIUM SERUM 3.7 MEQ/L (3.5-5.1); SODIUM LEVEL 140 MEQ/L (136-145)
[2017-07-29 18:08] LABS: BLOOD UREA NITROGEN 173 MG/DL (7-18); TROPONIN I 2.42 NG/ML (< 0.10)
[2017-07-29 20:15] LABS: ABG BASE EXCESS -5.3 (-2.0-2.0); ABG HCO3 20.7 MEQ/L (22.0-26.0); ABG O2 SATURATION 89.9 % (95.0-99.0); ABG PARTIAL PRESSURE O2 63.3 mmHg (75.0-100.0); ABG STANDARD HCO3 19.9 MEQ/L (22.0-26.0); ABG TOTAL CO2 22.1 MEQ/L (23.0-31.0); ABG pH (ARTERIAL) 7.301 UNITS (7.350-7.450)
[2017-07-29] MEDS ORDERED: NOREPINEPHRINE 4 MG/4 ML AMP As Ordered (21:24)
[2017-07-29] MEDS: NOREPINEPHRINE BITARTRATE 8 MG in D5W 500 ML IV (21:25)
[2017-07-29] MEDS: ATORVASTATIN 20 MG TAB PO (21:30)
[2017-07-29] MEDS ORDERED: ETOMIDATE INJ 20MG/10ML VIAL As Ordered (21:42)
[2017-07-29] MEDS ORDERED: SUCCINYLCHOLINE INJ 200 MG/10 ML VIAL (J0330) As Ordered (21:42)
[2017-07-29 21:58] LABS: HEMOGLOBIN 7.7 g/dl (12.0-16.0); MEAN CORPUSCULAR HEMOGLOBIN 29.8 pg (27.0-33.0); MEAN CORPUSCULAR HGB CONC 30.8 g/dl (32.0-36.5); MEAN CORPUSCULAR VOLUME 96.9 fl (80.0-96.0); PLATELET COUNT, AUTOMATED 206 10^3/uL (150-450); RED BLOOD COUNT 2.58 10^6/uL (4.00-5.40); RED CELL DISTRIBUTION WIDTH 21.5 % (11.5-14.5); WHITE BLOOD COUNT 26.6 10^3/uL (4.0-10.0)
[2017-07-29 21:59] LABS: ADD MANUAL DIFFER YES; DIFF SLIDE NUMBER 317; POS COUNT POS FLAG; POSITIVE MORPH POS FLAG
[2017-07-29] MEDS: ETOMIDATE INJ 20MG/10ML VIAL IV (22:03)
[2017-07-29] MEDS: SUCCINYLCHOLINE INJ 200 MG/10 ML VIAL (J0330) IV (22:03)
[2017-07-29 22:09] LABS: INR 2.94
[2017-07-29 22:10] LABS: PARTIAL THROMBOPLASTIN TIME 56.2 SECONDS (26.8-37.9)
[2017-07-29 22:13] LABS: ANISOCYTOSIS 3+; BANDS 10 % (< 11); LYMPHOCYTES 22 % (16-52); METAMYELOCYTES 6 % (0-0); MONOCYTES 6 % (0-8); NEUTROPHILS 55 % (35-75); PROMYELOCYTES 1 % (0-0)
[2017-07-29 22:15] LABS: HYPOCHROMASIA 1+; PLATELET CLUMPS SMALL AMT; POLYCHROMASIA 3+
[2017-07-29 22:18] LABS: BURR CELLS 1+; OVALOCYTES 1+; TEAR DROP CELLS 1+
[2017-07-29 22:22] LABS: PLATELET ESTIMATE NORMAL (NORMAL); POIKILOCYTOSIS 2+
[2017-07-29 22:23] LABS: ALBUMIN 1.6 GM/DL (3.2-5.2); ALBUMIN/GLOBULIN RATIO 0.62 (1.00-1.93); ALKALINE PHOSPHATASE 94 U/L (45-117); ALT/SGPT 665 U/L (12-78); ANION GAP 14 MEQ/L (8-16); AST/SGOT 393 U/L (7-37); BILIRUBIN,TOTAL 1.1 MG/DL (0.2-1.0); BLOOD UREA NITROGEN 157 MG/DL (7-18); CALCIUM LEVEL 6.6 MG/DL (8.8-10.2); CARBON DIOXIDE LEVEL 25 MEQ/L (21-32); CHLORIDE LEVEL 108 MEQ/L (98-107); GLOMERULAR FILTRATION RATE 17.4 (>39); GLUCOSE, FASTING 135 MG/DL (70-100); POTASSIUM SERUM 3.9 MEQ/L (3.5-5.1); SODIUM LEVEL 147 MEQ/L (136-145); TOTAL PROTEIN 4.2 GM/DL (6.4-8.2)
[2017-07-29 22:33] LABS: LACTIC ACID SEPSIS PROTOCOL 8.3 MMOL/L (0.4-2.0)
[2017-07-30] MEDS ORDERED: SODIUM BICARBONATE 8.4% INJ 50 ML SYRINGE (01:59)
[2017-07-30] MEDS ORDERED: EPINEPHrine 1MG/10ML SYRINGE 1.5IN (01:59)
[2017-07-30] MEDS ORDERED: ATROPINE SULF 1MG/10ML SYRINGE (J0461) (01:59)
== END 2017-07-30 02:00 | disposition expired ==
LOC: M ED 12:50 → M ED INP 15:01 → M ICU 16:47
PROC: 30233N1 Transfusion of Nonautologous Red Blood Cells into Peripheral Vein, Percutaneous Approach (ICD-10-PCS; principal; 2017-07-25)
PROC: 5A1945Z Respiratory Ventilation, 24-96 Consecutive Hours (ICD-10-PCS; 2017-07-25)
PROC: 02HV33Z Insertion of Infusion Device into Superior Vena Cava, Percutaneous Approach (ICD-10-PCS; 2017-07-25)
DX: I21.29 ST elevation (STEMI) myocardial infarction involving other sites (principal); J96.00 Acute respiratory failure, unspecified whether with hypoxia or hypercapnia; I50.31 Acute diastolic (congestive) heart failure; E87.2 Acidosis; N17.9 Acute kidney failure, unspecified; R17 Unspecified jaundice; I13.0 Hypertensive heart and chronic kidney disease with heart failure and stage 1 through stage 4 chronic kidney disease, or unspecified chronic kidney disease; K92.2 Gastrointestinal hemorrhage, unspecified; N18.4 Chronic kidney disease, stage 4 (severe); R57.0 Cardiogenic shock; I25.10 Atherosclerotic heart disease of native coronary artery without angina pectoris; E78.5 Hyperlipidemia, unspecified; I48.0 Paroxysmal atrial fibrillation; G47.33 Obstructive sleep apnea (adult) (pediatric); I73.9 Peripheral vascular disease, unspecified; E87.5 Hyperkalemia; Z95.2 Presence of prosthetic heart valve; Z88.2 Allergy status to sulfonamides; Z88.5 Allergy status to narcotic agent; Z88.8 Allergy status to other drugs, medicaments and biological substances; K75.9 Inflammatory liver disease, unspecified; J44.9 Chronic obstructive pulmonary disease, unspecified; E11.9 Type 2 diabetes mellitus without complications; Z79.01 Long term (current) use of anticoagulants; Z99.81 Dependence on supplemental oxygen; D63.1 Anemia in chronic kidney disease; F32.9 Major depressive disorder, single episode, unspecified